=== PATIENT | male | born 1945 | race Caucasian/White ===

== ENCOUNTER 2020-12-16 19:01 | Observation (INO) | payer MEDICARE ==
[~2020-12-16] VITALS: Ht 172.7 cm; Wt 116.8 kg
[2020-12-16 19:18] LABS: BASOPHILS ABSOLUTE AUTO 0.04 K/mm3 (0.00-0.23); BASOPHILS PERCENT AUTO 0 % (0-2); EOSINOPHILS ABSOLUTE AUTO 0.24 K/mm3 (0.00-0.68); EOSINOPHILS PERCENT AUTO 2 % (0-6); Hematocrit 43.1 % (37.0-53.0); Hemoglobin 14.2 g/dL (13.5-17.5); IMMATURE GRAN ABSOLUTE AUTO 0.06 K/mm3 (0.00-0.10); IMMATURE GRAN PERCENT AUTO 1 % (0-1); LYMPHOCYTES ABSOLUTE AUTO 2.79 K/mm3 (0.84-5.20); LYMPHOCYTES PERCENT AUTO 25 % (21-46); MONOCYTES ABSOLUTE AUTO 0.57 K/mm3 (0.16-1.47); MONOCYTES PERCENT AUTO 5 % (4-13); Mean Corpuscular HGB 28.9 pg (26.0-34.0); Mean Corpuscular HGB Conc 32.9 g/dL (31.5-36.5); Mean Corpuscular Volume 88 fL (80-100); NEUTROPHILS ABSOLUTE AUTO 7.43 K/mm3 (1.96-9.15); NEUTROPHILS PERCENT AUTO 67 % (41-73); Platelet Count 219 K/mm3 (150-400); RDW Coefficient Variation 13.1 % (11.7-14.2); RDW Standard Deviation 42.3 fL (35.1-46.3); Red Blood Cell Count 4.91 M/mm3 (4.30-5.90); White Blood Cell Count 11.13 K/mm3 (4.00-11.30)
[2020-12-16] MEDS ORDERED: HUMALOG KW100 UNIT/1 SC (19:34)
[2020-12-16 19:35] LABS: Alanine Aminotransfer (ALT/SGP 31 U/L (12-78); Albumin, Blood 3.5 g/dL (3.4-5.0); Albumin/Globulin Ratio 0.9 (0.8-1.8); Alk Phos 105 U/L (50-136); Anion Gap 9 mmol/L (6-16); Aspartate Aminotrans (AST/SGOT 27 U/L (12-37); Bilirubin, Total 0.2 mg/dL (0.1-1.0); Blood Urea Nitrogen 23 mg/dL (8-24); Bun/Creatinine Ratio 24.6 (12.0-20.0); CO2, Blood 27 mmol/L (21-32); Calcium, Blood 8.8 mg/dL (8.5-10.1); Chloride, Blood 104 mmol/L (98-108); Creatinine, Blood 0.93 mg/dL (0.60-1.20); Globulin, Blood 4.1 g/dL (2.2-4.0); Glomerular Filtration Rate >60 (60-); Glucose, Blood 205 mg/dL (70-99); Potassium, Blood 3.3 mmol/L (3.5-5.5); Sodium, Blood 140 mmol/L (136-145); Total Protein, Blood 7.6 g/dL (6.4-8.2)
[2020-12-16] MEDS ORDERED: BASAGLAR K100 UNIT/1 SC (19:35)
[2020-12-16] MEDS ORDERED: METF500 PO (19:36)
[2020-12-16] MEDS ORDERED: VENL150ER PO (19:37)
[2020-12-16] MEDS ORDERED: VENL75ER PO (19:38)
[2020-12-16] MEDS ORDERED: LISI20 PO (19:39)
[2020-12-16 22:10] LABS: Calcium, Ionized (POC) 1.11 mmol/L (1.10-1.46); Chloride (POC) 100 mmol/L (98-108); Creatinine (POC) 1.1 mg/dL (0.8-1.3); Glucose (ISTAT POC) 132 mg/dL (70-99); Hemoglobin (POC) 13.6 g/dL (13.5-17.5); Potassium (POC) 3.5 mmol/L (3.5-5.5); Sodium (POC) 141 mmol/L (135-148); Total CO2 (POC) 29 mmol/L (21-32)
--- NOTE | 2020-12-17 03:18 | NUR ---
HYPERTENSIVE PT REMAINS HYPERTENSIVE DESPITE PO HYDRALYZINE. BP IMPROVED BUT SBP STILL HIGH IN THE 170'S. DR. STERN CALLED AND NOTIFIED OF PT BP AND THAT HE HAS ALREADY RECEIVED PO HYDRALYZINE. RECEIVED ORDER FOR IV HYDRALYZINE 10MG FOR SBP GREATER THAN 160 Q 6HR.
[2020-12-17 05:09] LABS: BASOPHILS ABSOLUTE AUTO 0.05 K/mm3 (0.00-0.23); BASOPHILS PERCENT AUTO 1 % (0-2); EOSINOPHILS ABSOLUTE AUTO 0.22 K/mm3 (0.00-0.68); EOSINOPHILS PERCENT AUTO 3 % (0-6); Hematocrit 41.3 % (37.0-53.0); Hemoglobin 13.3 g/dL (13.5-17.5); IMMATURE GRAN ABSOLUTE AUTO 0.04 K/mm3 (0.00-0.10); IMMATURE GRAN PERCENT AUTO 1 % (0-1); LYMPHOCYTES ABSOLUTE AUTO 2.44 K/mm3 (0.84-5.20); LYMPHOCYTES PERCENT AUTO 28 % (21-46); MONOCYTES ABSOLUTE AUTO 0.71 K/mm3 (0.16-1.47); MONOCYTES PERCENT AUTO 8 % (4-13); Mean Corpuscular HGB 28.5 pg (26.0-34.0); Mean Corpuscular HGB Conc 32.2 g/dL (31.5-36.5); Mean Corpuscular Volume 88 fL (80-100); Mean Platelet Volume 10.7 fL (9.1-12.4); NEUTROPHILS ABSOLUTE AUTO 5.27 K/mm3 (1.96-9.15); NEUTROPHILS PERCENT AUTO 60 % (41-73); Platelet Count 212 K/mm3 (150-400); RDW Standard Deviation 42.1 fL (35.1-46.3); Red Blood Cell Count 4.67 M/mm3 (4.30-5.90); White Blood Cell Count 8.73 K/mm3 (4.00-11.30)
[2020-12-17 05:10] LABS: Anion Gap 8 mmol/L (6-16); Blood Urea Nitrogen 20 mg/dL (8-24); Bun/Creatinine Ratio 24.8 (12.0-20.0); CO2, Blood 27 mmol/L (21-32); Calcium, Blood 8.7 mg/dL (8.5-10.1); Chloride, Blood 107 mmol/L (98-108); Creatinine, Blood 0.81 mg/dL (0.60-1.20); Glomerular Filtration Rate >60 (60-); Glucose, Blood 171 mg/dL (70-99); Magnesium, Blood 1.8 mg/dL (1.6-2.4); Phosphorus, Blood 2.9 mg/dL (2.5-4.9); Potassium, Blood 3.7 mmol/L (3.5-5.5); Sodium, Blood 142 mmol/L (136-145)
--- NOTE | 2020-12-17 06:17 | NUR ---
SHIFT SUMMARY PT ER ADMIT THIS SHIFT FOR ACCIDENTAL OD OF HUMALOG. 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 PT BG HAS BEEN CORRECTED IN THE ER WITH SEVERAL SNACKS, AND DINNER BEFORE ARRIVING TO ER. BG IS BEING KEPT STABLE WITH DEXTROSE. MONITORING BG Q4HR AT THIS TIME. BG RANGE BETWEEN 150'S-180'S. PT A/OX4, ALL SYSTEMS ESSENTIALLY NEGATIVE. HYPERTENSIVE, PT HAS BEEN MEDICATED WITH HYDRALYZINE ORDERED. POTASSIUM BEING REPLACED DUE TO INSULIN SHIFTS. NO ACUTE CHANGES TO REPORT SINCE ADMISSION. BED IN LOWEST POSITION, CALL LIGHT WITHIN REACH.
[2020-12-17] MEDS ORDERED: HYDR10 PO (14:09)
--- NOTE | 2020-12-17 14:31 | NUR ---
PATIENT DISCHARGE: PATIENT DISCHARGED TO HOME THIS SHIFT. MEDICATION RECONCILIATION COMPLETED; NO NEW MEDS TO REPORT. DISCHARGE EDUCATION COMPLETED WITH PATIENT AND FAMILY. PATIENT TRANSPORTED TO EXIT BY [facility] WITH WHEELCHAIR AT 1430. PATIENT DEPARTED [facility] VIA PRIVATE AUTO.
== END 2020-12-17 14:30 | disposition home or self-care (01) ==
LOC: ER 19:01 → MEDS 19:02 → ER 23:18 → MEDS 23:18 → ENPENDDIS 12-17 10:25 → MEDS 12-17 14:30
PROVIDERS: Emergency Medicine; ADMIT Family Medicine
DX: T38.3X1A Poisoning by insulin and oral hypoglycemic [antidiabetic] drugs, accidental (unintentional), initial encounter (principal); E87.6 Hypokalemia; I16.0 Hypertensive urgency; I10 Essential (primary) hypertension; E11.9 Type 2 diabetes mellitus without complications; E66.01 Morbid (severe) obesity due to excess calories; Z79.4 Long term (current) use of insulin
CPT/HCPCS: 36415; 80047; 80048; 80053; 82947; 83735; 84100; 85014; 85025; 93005; 93010; 96372; 96374; 96375; 99285-25; A9270; G0378; J0360; J1650

== ENCOUNTER 2021-05-16 20:18 | Emergency (ER) | payer MEDICARE ==
[~2021-05-16] VITALS: Ht 177.8 cm; Wt 124.7 kg
[~2021-05-16 20:18] MED LIST: BASAGLAR K100 UNIT/1 SC; HUMALOG KW100 UNIT/1 SC; HYDR10 PO; LISI20 PO; METF500 PO; VENL150ER PO; VENL75ER PO
[2021-05-16 20:48] LABS: BASOPHILS ABSOLUTE AUTO 0.04 K/mm3 (0.00-0.23); BASOPHILS PERCENT AUTO 0 % (0-2); EOSINOPHILS PERCENT AUTO 0 % (0-6); Hematocrit 40.5 % (37.0-53.0); Hemoglobin 13.5 g/dL (13.5-17.5); IMMATURE GRAN ABSOLUTE AUTO 0.07 K/mm3 (0.00-0.10); IMMATURE GRAN PERCENT AUTO 1 % (0-1); LYMPHOCYTES ABSOLUTE AUTO 1.58 K/mm3 (0.84-5.20); LYMPHOCYTES PERCENT AUTO 11 % (21-46); MONOCYTES ABSOLUTE AUTO 1.21 K/mm3 (0.16-1.47); MONOCYTES PERCENT AUTO 8 % (4-13); Mean Corpuscular HGB 29.3 pg (26.0-34.0); Mean Corpuscular HGB Conc 33.3 g/dL (31.5-36.5); Mean Corpuscular Volume 88 fL (80-100); NEUTROPHILS ABSOLUTE AUTO 11.57 K/mm3 (1.96-9.15); NEUTROPHILS PERCENT AUTO 80 % (41-73); Platelet Count 211 K/mm3 (150-400); RDW Coefficient Variation 13.3 % (11.7-14.2); RDW Standard Deviation 42.8 fL (35.1-46.3); Red Blood Cell Count 4.61 M/mm3 (4.30-5.90); White Blood Cell Count 14.47 K/mm3 (4.00-11.30)
[2021-05-16 21:11] LABS: Alanine Aminotransfer (ALT/SGP 21 U/L (12-78); Albumin, Blood 3.1 g/dL (3.4-5.0); Albumin/Globulin Ratio 0.7 (0.8-1.8); Alk Phos 87 U/L (50-136); Anion Gap 7 mmol/L (6-16); Aspartate Aminotrans (AST/SGOT 24 U/L (12-37); Bilirubin, Total 0.5 mg/dL (0.1-1.0); Blood Urea Nitrogen 17 mg/dL (8-24); Bun/Creatinine Ratio 19.1 (12.0-20.0); CO2, Blood 27 mmol/L (21-32); Calcium, Blood 8.8 mg/dL (8.5-10.1); Chloride, Blood 99 mmol/L (98-108); Creatinine, Blood 0.89 mg/dL (0.60-1.20); Ethanol (Alcohol), Blood, Med <3 mg/dL; Globulin, Blood 4.7 g/dL (2.2-4.0); Glomerular Filtration Rate >60 (60-); Glucose, Blood 121 mg/dL (70-99); Potassium, Blood 3.1 mmol/L (3.5-5.5); Sodium, Blood 133 mmol/L (136-145); Total Protein, Blood 7.8 g/dL (6.4-8.2)
[2021-05-16 21:42] LABS: Source, Urine Voided
[2021-05-16 21:49] LABS: Bilirubin, Urine Neg (Neg); Blood, Urine 2+ (Neg); Glucose Qualitative, Urine Neg (Neg); Ketones, Urine 2+ (Neg); Leukocyte Esterase, Urine Neg (Neg); Nitrite, Urine Neg (Neg); Protein, Urine 3+ (Neg); Specific Gravity, Urine 1.015 (1.003-1.022); Urobilinogen, Urine 1+ (Normal); pH, Urine 6.5 (5.0-8.0)
[2021-05-16 21:56] LABS: Appearance, Urine Clear (Clear); Color, Urine Yellow (P-Yellow)
[2021-05-16 21:57] LABS: Bacteria Not Seen /hpf; Red Blood Cells, Urine 0-2 /hpf (0-2); Squamous Epithelial Cells Not Seen /hpf (Few); White Blood Cells, Urine Not Seen /hpf (0-5)
[2021-05-16 21:59] LABS: U Amphetamine Screen Not Detected; U Barbituate Screen Not Detected; U Benzodiazapine Screen Not Detected; U Buprenorphine Screen Not Detected; U Cannabinoids Screen Not Detected; U Cocaine Screen Not Detected; U Methadone Screen Not Detected; U Methamphetamine Screen Not Detected; U Opiates Screen Not Detected; U Oxycodone Screen Not Detected; U Phencyclidine Screen Not Detected; U Propoxyphene Screen Not Detected
== END 2021-05-17 02:52 | disposition home or self-care (01) ==
LOC: ER 20:18
PROVIDERS: Emergency Medicine
DX: R50.9 Fever, unspecified (principal); E11.9 Type 2 diabetes mellitus without complications; R53.1 Weakness; Z79.4 Long term (current) use of insulin; Z79.899 Other long term (current) drug therapy
CPT/HCPCS: 70450; 80053; 81001; 82947; 85025; 93005; 93010; 96365; 99285-25; G0480; J0696

== ENCOUNTER 2022-04-03 07:16 | Day surgery (SDC) | payer MEDICARE ==
[~2022-04-03] VITALS: Ht 172.7 cm; Wt 109.1 kg
[~2022-04-03 07:16] MED LIST changes: +AMLODIPINE BESY10 MG PO; +CYMBALTA30 M2 PO; +FUROSEMIDE40 MG PO; +GABAPENTIN600 MG PO; +HYDCHL25 PO; +K-Dur20 MEQ PO; +METOPROLOL TART25 MG PO; +Simvastatin20 MG PO; +ZOLPIDEM TARTRA10 MG PO
[2022-04-03] MEDS ORDERED: INSULANI (08:08)
--- NOTE | 2022-04-03 09:23 | NUR ---
04/03/22 0923 Stella Saunders LATE ENTRY: PT AWAKE, ALERT, PT SMILING AND LAUGHING PRIOR TO D/C
== END 2022-04-03 09:22 | disposition home or self-care (01) ==
LOC: ORSCSDS 07:16
PROVIDERS: Orthopaedic Surgery
PROC: 01N50ZZ Release Median Nerve, Open Approach (ICD-10-PCS; principal; 2022-04-03 08:30)
DX: G56.03 Carpal tunnel syndrome, bilateral upper limbs (principal); E11.9 Type 2 diabetes mellitus without complications; I10 Essential (primary) hypertension; F32.A Depression, unspecified; E78.5 Hyperlipidemia, unspecified; E03.9 Hypothyroidism, unspecified; E66.9 Obesity, unspecified; Z68.36 Body mass index [BMI] 36.0-36.9, adult; Z79.4 Long term (current) use of insulin; Z79.899 Other long term (current) drug therapy
CPT/HCPCS: 82947; J0690; J2250; J2704; J3010; J7120

== ENCOUNTER 2022-05-08 06:51 | Day surgery (SDC) | payer MEDICARE ==
[~2022-05-08] VITALS: Ht 172.7 cm; Wt 115.6 kg
[~2022-05-08 06:51] MED LIST changes: +INSULANI
--- NOTE | 2022-05-08 07:34 | NUR ---
05/08/22 0734 Stella Saunders CALL LIGHT WITHIN REACH
--- NOTE | 2022-05-08 08:14 | NUR ---
05/08/22 0814 ARUELIANO SMITH 0.3MG OF EPI (1MG/1ML) ADDED TO 30MLS OF LIDOCAINE 1% TO CREATE A LOCAL SOLUTION OF LIDOCAINE 1% WITH EPI 1:100,000. 10MLS OF LIDOCAINE 1% WITH EPI INJECTED INTO LHAND BY DR. PAT AT BEGINNING OF CASE.
--- NOTE | 2022-05-08 08:49 | NUR ---
05/08/22 0849 Bárbara Heck PT READY FOR D/C, AWAITING SISTER JAY JAY FROM [place].
== END 2022-05-08 09:16 | disposition home or self-care (01) ==
LOC: ORSCSDS 06:51
PROVIDERS: Orthopaedic Surgery
PROC: 01N50ZZ Release Median Nerve, Open Approach (ICD-10-PCS; principal; 2022-05-08 08:00)
DX: G56.02 Carpal tunnel syndrome, left upper limb (principal); E11.9 Type 2 diabetes mellitus without complications; I10 Essential (primary) hypertension; F32.A Depression, unspecified; E78.5 Hyperlipidemia, unspecified; E03.9 Hypothyroidism, unspecified; Z79.4 Long term (current) use of insulin; Z79.899 Other long term (current) drug therapy
CPT/HCPCS: 82947; J0171; J0690; J1100; J2250; J2405; J2704; J3010; J7120

== ENCOUNTER 2023-10-16 20:22 | Observation (INO) | payer MEDICARE ==
[~2023-10-16] VITALS: Ht 172.7 cm; Wt 117.9 kg
[~2023-10-16 20:22] MED LIST changes: -INSULANI; +INSULANI SC
[2023-10-16 20:51] LABS: BASOPHILS ABSOLUTE AUTO 0.04 K/mm3 (0.00-0.23); BASOPHILS PERCENT AUTO 0 % (0-2); EOSINOPHILS ABSOLUTE AUTO 0.01 K/mm3 (0.00-0.68); EOSINOPHILS PERCENT AUTO 0 % (0-6); Hematocrit 39.6 % (37.0-53.0); Hemoglobin 12.7 g/dL (13.5-17.5); IMMATURE GRAN ABSOLUTE AUTO 0.05 K/mm3 (0.00-0.10); IMMATURE GRAN PERCENT AUTO 1 % (0-1); LYMPHOCYTES PERCENT AUTO 9 % (21-46); MONOCYTES PERCENT AUTO 6 % (4-13); Mean Corpuscular HGB 28.6 pg (26.0-34.0); Mean Corpuscular HGB Conc 32.1 g/dL (31.5-36.5); Mean Corpuscular Volume 89 fL (80-100); Mean Platelet Volume 9.6 fL (9.1-12.4); NEUTROPHILS ABSOLUTE AUTO 9.19 K/mm3 (1.96-9.15); NEUTROPHILS PERCENT AUTO 84 % (41-73); Platelet Count 153 K/mm3 (150-400); RDW Coefficient Variation 13.8 % (11.7-14.2); RDW Standard Deviation 45.2 fL (35.1-46.3); Red Blood Cell Count 4.44 M/mm3 (4.30-5.90); White Blood Cell Count 10.99 K/mm3 (4.00-11.30)
[2023-10-16 21:16] LABS: Albumin/Globulin Ratio 0.8 (0.8-1.8); Bilirubin, Total 0.2 mg/dL (0.1-1.0); Calcium, Blood 8.7 mg/dL (8.5-10.1); Creatinine, Blood 1.57 mg/dL (0.60-1.20); Globulin, Blood 3.7 g/dL (2.2-4.0); Potassium, Blood 4.7 mmol/L (3.5-5.5); Total Protein, Blood 6.7 g/dL (6.4-8.2)
[2023-10-17 01:57] LABS: Source, Urine Clean Catch
[2023-10-17 01:58] LABS: Bilirubin, Urine Neg (Neg); Blood, Urine 1+ (Neg); Glucose Qualitative, Urine Neg (Neg); Ketones, Urine Neg (Neg); Leukocyte Esterase, Urine Neg (Neg); Nitrite, Urine Neg (Neg); Protein, Urine 3+ (Neg); Specific Gravity, Urine 1.015 (1.003-1.022); Urobilinogen, Urine NORM (Normal)
[2023-10-17 02:08] LABS: Appearance, Urine Clear (Clear); Color, Urine Yellow (P-Yellow)
[2023-10-17 02:09] LABS: Bacteria Rare /hpf; Squamous Epithelial Cells Rare /hpf (Few); Transitional Epithelial Cells Few /hpf (0-Rare); White Blood Cells, Urine 0-2 /hpf (0-5)
[2023-10-17] MEDS ORDERED: SPIR25 PO (03:56)
[2023-10-17] MEDS ORDERED: DOXA4 PO (03:56)
[2023-10-17] MEDS ORDERED: ABILIFY MYCITE10 M2 PO (03:58)
--- NOTE | 2023-10-17 04:44 | NUR ---
NURSE NOTE PATIENT ARRIVED FROM ED. PATIENT TRANSFERRED WITH ONE PERSON ASSIST FROM [facility] TO BED. COMPLETING ADMIT NOW.
[2023-10-17 04:45] VITALS: BP 144/59
[2023-10-17 05:18] LABS: BASOPHILS ABSOLUTE AUTO 0.04 K/mm3 (0.00-0.23); BASOPHILS PERCENT AUTO 0 % (0-2); EOSINOPHILS ABSOLUTE AUTO 0.04 K/mm3 (0.00-0.68); EOSINOPHILS PERCENT AUTO 0 % (0-6); Hemoglobin 12.3 g/dL (13.5-17.5); IMMATURE GRAN ABSOLUTE AUTO 0.05 K/mm3 (0.00-0.10); IMMATURE GRAN PERCENT AUTO 1 % (0-1); LYMPHOCYTES ABSOLUTE AUTO 1.61 K/mm3 (0.84-5.20); LYMPHOCYTES PERCENT AUTO 16 % (21-46); MONOCYTES ABSOLUTE AUTO 0.61 K/mm3 (0.16-1.47); MONOCYTES PERCENT AUTO 6 % (4-13); Mean Corpuscular HGB 28.1 pg (26.0-34.0); Mean Corpuscular HGB Conc 31.5 g/dL (31.5-36.5); Mean Corpuscular Volume 89 fL (80-100); Mean Platelet Volume 9.8 fL (9.1-12.4); NEUTROPHILS PERCENT AUTO 76 % (41-73); Platelet Count 157 K/mm3 (150-400); RDW Coefficient Variation 13.9 % (11.7-14.2); RDW Standard Deviation 45.6 fL (35.1-46.3); Red Blood Cell Count 4.37 M/mm3 (4.30-5.90); White Blood Cell Count 9.85 K/mm3 (4.00-11.30)
[2023-10-17 06:02] LABS: Albumin, Blood 3.1 g/dL (3.4-5.0); Albumin/Globulin Ratio 0.8 (0.8-1.8); Bilirubin, Total 0.4 mg/dL (0.1-1.0); Bun/Creatinine Ratio 24.5 (12.0-20.0); Calcium, Blood 8.9 mg/dL (8.5-10.1); Creatinine, Blood 1.59 mg/dL (0.60-1.20); Globulin, Blood 3.8 g/dL (2.2-4.0); Potassium, Blood 4.4 mmol/L (3.5-5.5); Total Protein, Blood 6.9 g/dL (6.4-8.2)
[2023-10-17 07:09] VITALS: BP 171/59
[2023-10-17 11:41] VITALS: BP 143/67
[2023-10-17 15:33] VITALS: BP 173/72
--- NOTE | 2023-10-17 16:12 | NUR ---
SHIFT SUMMARY: NO ACUTE EVENTS. DENIED PAIN. WORKED WITH PHYSICAL THERAPY TODAY; WANTS RX FOR WALKER FOR HOME AT D/C. BUE STILL VERY WEAK, SBA WITH GB AND FWW WHEN AMBULATING. USING URINAL INDEPENDENTLY. SKIN INTACT. EDUCATED ABOUT FALL PREVENTION WHILE IN THE HOSPITAL, VERBALILZED UNDERSTANDING. GAVE TELEPHONE UPDATE TO HIS SISTER JAY JAY, WHO STATED SHE IS MOVING TO [place] THE END OF NEXT WEEK TO LOOK AFTER PT BETTER.
[2023-10-17 19:16] VITALS: BP 163/71
[2023-10-18 04:27] VITALS: BP 166/98
[2023-10-18 05:08] VITALS: BP 187/68
[2023-10-18 05:58] VITALS: BP 182/93
--- NOTE | 2023-10-18 06:33 | NUR ---
SHIFT SUMMARY NOC PT A/O X 4. PLEASANT AND COOPERATIVE WITH CARE. PT HAD C/O OF INSOMNIA AND ORDER OBTAINED FOR HOME RX BEDTIME DOSE OF AMBIEN. PT STILL HAS SIGNIFICANT BUE WEAKNESS AND NEEDS ASSISTANCE TO SIT UP AT EDGE OF BED. PT WAS INCONTINENT OF URINE X 1, AND REPORTED IT WAS DUE TO HEAVY SLEEP FROM TAKING AMBIEN. PT HS CBG 143 AND PT DID NOT WANT TO TAKE A SNACK WITH EVENING SCHEDULED DOSE OF GLARGINE, SO DOSE WAS NOT GIVEN DUE TO CLINICAL JUDGEMENT. PT HAD ELEVATED BP THIS AM AND HYDRALAZINE AND LABETELOL GIVEN, PT IS ON TELE NOW RUNNING SINUS RHYTHM IN HIGH 60'S.PT IS CURRENTLY RESTING WITH BED ALARM ON, BED IN LOWEST POSITION, AND CALL LIGHT WITHIN REACH.
[2023-10-18 06:42] VITALS: BP 180/83
[2023-10-18 07:27] VITALS: BP 152/64
[2023-10-18] MEDS ORDERED: HUMALOG KW100 UNIT/1 SC (13:03)
--- NOTE | 2023-10-18 15:13 | NUR ---
PATIENT DISCHARGED TO HOME VIA [facility]. IV SALINE LOCK AND TELEMETRY REMOVED WITHOUT INCIDENT. THIS AUTHOR SPENT ~30 MINUTES REVIEWING D/C INSTRUCTIONS AND NEW MEDICATIONS WITH PATIENT, GOING OVER SLIDING SCALE, FREQUENCY OF BG CHECKS AT HOME (HE ADMITTED THAT HE DOES NOT CHECK HIS BG AT HOME BUT HAS NEW METER AND PLENTY OF SUPPLIES), FALL PREVENTION, SAFETY, AND S/S OF HYPO- AND HYPERGLYCEMIA. TOOK MEASUREMENTS OF FWW SO HE COULD BUY HIS OWN. DISCUSSED CUTTING DOWN HIS DOSE OF AMBIEN (HE TOOK 10 MG LAST NIGHT AND, PER NOC RN, WAS CONFUSED, GOT OOB NAKED, AND DID NOT KNOW WHERE HE WAS AND IT TOOK SOME TIME TO RE-ORIENT HIM; PT WAS EMBARASSED TO HEAR THIS AND DID NOT REMEMBER ANY OF IT). VERBALIZED UNDERSTANDING OF INSTRUCTIONS, BUT THIS AUTHOR DOUBTS THAT HE TRULY UNDERSTOOD. HE WILL NEED ASSISTANCE WITH HIS MEDS GOING FORWARD. HIS SISTER JAY JAY IS MOVING HERE THIS COMING THURSDAY TO HELP TAKE CARE OF HIM.
== END 2023-10-18 14:14 | disposition home or self-care (01) ==
LOC: ER 20:22 → MEDS 20:23 → ENPENDDIS 10-18 10:55 → MEDS 10-18 14:14
PROVIDERS: Emergency Medicine; Family Medicine; Student in an Organized Health Care Education/Training Program; ADMIT Internal Medicine
DX: E11.649 Type 2 diabetes mellitus with hypoglycemia without coma (principal); R09.02 Hypoxemia; I10 Essential (primary) hypertension; G56.00 Carpal tunnel syndrome, unspecified upper limb; Z79.84 Long term (current) use of oral hypoglycemic drugs; Z72.0 Tobacco use; E78.5 Hyperlipidemia, unspecified; N40.0 Benign prostatic hyperplasia without lower urinary tract symptoms; F39 Unspecified mood [affective] disorder; Z66 Do not resuscitate
CPT/HCPCS: 36415; 51701; 51798; 71046; 80053; 81001; 82947; 83880; 85025; 93005; 93010; 94640; 94664; 94760; 96374-59; 96375; 97162; 97530; 99285-25; A9270; G0378; J0360; J1650; J1815; J7799

== ENCOUNTER 2024-05-25 16:11 | Inpatient (IN) | payer MEDICARE ==
[~2024-05-25] VITALS: Ht 172.7 cm; Wt 113.4 kg
[~2024-05-25 16:11] MED LIST changes: +ABILIFY MYCITE15 M2 PO; +DOXA4 PO; +Flagyl250 MG PO; +SPIR25 PO
[2024-05-25 16:57] LABS: BASOPHILS ABSOLUTE AUTO 0.04 K/mm3 (0.00-0.23); BASOPHILS PERCENT AUTO 1 % (0-2); EOSINOPHILS PERCENT AUTO 3 % (0-6); Hematocrit 33.9 % (37.0-53.0); Hemoglobin 10.8 g/dL (13.5-17.5); IMMATURE GRAN ABSOLUTE AUTO 0.06 K/mm3 (0.00-0.10); IMMATURE GRAN PERCENT AUTO 1 % (0-1); LYMPHOCYTES ABSOLUTE AUTO 2.11 K/mm3 (0.84-5.20); LYMPHOCYTES PERCENT AUTO 27 % (21-46); MONOCYTES ABSOLUTE AUTO 0.62 K/mm3 (0.16-1.47); MONOCYTES PERCENT AUTO 8 % (4-13); Mean Corpuscular HGB 29.5 pg (26.0-34.0); Mean Corpuscular HGB Conc 31.9 g/dL (31.5-36.5); Mean Corpuscular Volume 93 fL (80-100); Mean Platelet Volume 9.8 fL (9.1-12.4); NEUTROPHILS ABSOLUTE AUTO 4.86 K/mm3 (1.96-9.15); NEUTROPHILS PERCENT AUTO 62 % (41-73); Platelet Count 186 K/mm3 (150-400); RDW Coefficient Variation 13.8 % (11.7-14.2); Red Blood Cell Count 3.66 M/mm3 (4.30-5.90); White Blood Cell Count 7.89 K/mm3 (4.00-11.30)
[2024-05-25 17:25] LABS: Magnesium, Blood 1.8 mg/dL (1.6-2.4)
[2024-05-25 17:35] LABS: Albumin, Blood 3.4 g/dL (3.4-5.0); Albumin/Globulin Ratio 0.9 (0.8-1.8); Bilirubin, Total 0.2 mg/dL (0.1-1.0); Bun/Creatinine Ratio 22.1 (12.0-20.0); Calcium, Blood 8.9 mg/dL (8.5-10.1); Creatinine, Blood 1.99 mg/dL (0.60-1.20); Globulin, Blood 3.9 g/dL (2.2-4.0); Potassium, Blood 6.7 mmol/L (3.5-5.5); Total Protein, Blood 7.3 g/dL (6.4-8.2)
[2024-05-25] MEDS ORDERED: Albuterol 2.5 MG/3 ML VIAL INH SCH (18:10)
[2024-05-25] MEDS ORDERED: Dextrose 50% 50 ML Syringe IV ONE (18:10)
[2024-05-25] MEDS ORDERED: Calcium Chloride 10% 100 MG/ML 10ML Vial IV SCH (18:10)
[2024-05-25] MEDS ORDERED: Sodium Bicarb 8.4% 1 MEQ/ML 50 ML Vial IV ONE (18:10)
[2024-05-25] MEDS ORDERED: Insulin Regular 100 Unit/ML 1ML Dose IV ONE (18:10)
[2024-05-25] MEDS ORDERED: Sodium Polystyrene Sulfonate 15GM / 60ML BTL PO ONE (18:10)
[2024-05-25] MEDS ORDERED: CALCIUM GLUC IN NACL, ISO-OSM 50 ML IV ONE (18:20)
[2024-05-25] MEDS ORDERED: Calcium Chloride 10% 1,000 MG in NS 50 ML IV ONE (18:25)
[2024-05-25 22:22] VITALS: BP 168/69
[2024-05-25] MEDS ORDERED: CeFAZolin 1000MG in D5W 50 ML IV ONE (22:55)
[2024-05-25] MEDS ORDERED: Acetaminophen 325 MG TABLET PO PRN (22:55)
[2024-05-25] MEDS ORDERED: Dexamethasone Sod Phos 10 MG/ML 1ML VIAL IV ONE (22:55)
[2024-05-25] MEDS ORDERED: FentaNYL Citrate 50 MCG/ML 2 ML Injection IV PRN (22:55)
[2024-05-25] MEDS ORDERED: Miconazole Nitrate 2% 85 GM PWD TOP SCH (23:00)
[2024-05-25 23:17] LABS: Creatinine, Blood 1.86 mg/dL (0.60-1.20); Potassium, Blood 5.8 mmol/L (3.5-5.5)
[2024-05-25] MEDS ORDERED: CeFAZolin Sodium 1,000 MG in NS 50 ML IV ONE (23:20)
[2024-05-25] MEDS ORDERED: NS 250 ML IV PRN (23:55)
[2024-05-25] MEDS ORDERED: ROSUVASTATIN CA20 MG PO (23:59)
[2024-05-26] MEDS ORDERED: SERTRALINE HCL150 M1 PO
[2024-05-26] MEDS ORDERED: ANTIFUNGAL EXTR92 GM TOP (00:01)
[2024-05-26] MEDS ORDERED: PROBIOTIC1 EA13 PO (00:02)
[2024-05-26] MEDS ORDERED: TAMSULOSIN HCL0.4 M1 PO (00:03)
[2024-05-26] MEDS ORDERED: CELEBREX200 MG PO (00:05)
[2024-05-26] MEDS ORDERED: K-Dur20 MEQ PO (00:07)
[2024-05-26] MEDS ORDERED: GABAPENTIN600 MG PO (00:07)
[2024-05-26] MEDS ORDERED: EUTHYROX88 MC1 PO (00:08)
[2024-05-26] MEDS ORDERED: BUPROPION XL150 M1 PO (00:09)
[2024-05-26] MEDS ORDERED: SILDENAFIL CITR25 MG PO (00:10)
[2024-05-26 05:15] LABS: BASOPHILS ABSOLUTE AUTO 0.04 K/mm3 (0.00-0.23); BASOPHILS PERCENT AUTO 0 % (0-2); EOSINOPHILS ABSOLUTE AUTO 0.02 K/mm3 (0.00-0.68); EOSINOPHILS PERCENT AUTO 0 % (0-6); Hematocrit 37.2 % (37.0-53.0); Hemoglobin 11.7 g/dL (13.5-17.5); IMMATURE GRAN ABSOLUTE AUTO 0.09 K/mm3 (0.00-0.10); IMMATURE GRAN PERCENT AUTO 1 % (0-1); LYMPHOCYTES ABSOLUTE AUTO 1.16 K/mm3 (0.84-5.20); LYMPHOCYTES PERCENT AUTO 10 % (21-46); MONOCYTES ABSOLUTE AUTO 0.13 K/mm3 (0.16-1.47); MONOCYTES PERCENT AUTO 1 % (4-13); Mean Corpuscular HGB 29.1 pg (26.0-34.0); Mean Corpuscular HGB Conc 31.5 g/dL (31.5-36.5); Mean Corpuscular Volume 93 fL (80-100); NEUTROPHILS ABSOLUTE AUTO 9.99 K/mm3 (1.96-9.15); NEUTROPHILS PERCENT AUTO 88 % (41-73); Platelet Count 166 K/mm3 (150-400); RDW Coefficient Variation 13.7 % (11.7-14.2); RDW Standard Deviation 46.5 fL (35.1-46.3); Red Blood Cell Count 4.02 M/mm3 (4.30-5.90); White Blood Cell Count 11.43 K/mm3 (4.00-11.30)
[2024-05-26 06:17] LABS: Albumin, Blood 3.6 g/dL (3.4-5.0); Albumin/Globulin Ratio 0.9 (0.8-1.8); Bilirubin, Total 0.3 mg/dL (0.1-1.0); Bun/Creatinine Ratio 22.7 (12.0-20.0); Calcium, Blood 8.9 mg/dL (8.5-10.1); Creatinine, Blood 1.63 mg/dL (0.60-1.20); Total Protein, Blood 7.6 g/dL (6.4-8.2)
[2024-05-26 06:19] LABS: Potassium, Blood 6.1 mmol/L (3.5-5.5)
[2024-05-26] MEDS ORDERED: Insulin Regular 100 Unit/ML 1ML Dose IV ONE (07:00)
[2024-05-26] MEDS ORDERED: Dextrose 50% 50 ML Vial IV ONE (07:00)
[2024-05-26] MEDS ORDERED: Sodium Zirconium Cyclosilicate 10 GM Packet PO SCH (07:00)
[2024-05-26] MEDS ORDERED: Dextrose 5% 250 ML IV SCH (07:10)
[2024-05-26] MEDS ORDERED: Insulin Human Lispro 100 Units/ML 3ML Syringe SC SCH (07:30)
[2024-05-26 07:41] VITALS: BP 184/73
--- NOTE | 2024-05-26 08:01 | NUR ---
SHIFT SUMMARY PT ARRIVED TO ROOM 355 FROM THE ER VIA WHEELCHAIR AROUND 2200. VSS ON RA. PER TELEMETRY PT IS NSR @ 68. PT HAS YEASTY RED RASH IN GROIN AND INTERGLUTEAL CLEFT. PT ARRIVES TO THE ROOM WITH HIS R HAND VERY PAINFUL 10/10, PURPLISH IN COLOR, AND EXTREME EDEMA WITH TAUT SKIN. IV REMOVED. CALLED AND THIS RN ASKED FOR THEM TO COME TO PT'S ROOM AND VISUALIZE PT'S RIGHT HAND. PT ORIENTED TO ROOM AND CALL LIGHT. SBA TO BR, PT USES A CANE OR FWW AT BASELINE. CRITICAL K AT 6.1, NOTIFIED, SEE NEW ORDERS. CONSISTENT CARB DIET. BED IN LOWEST POSITION, CALL LIGHT WITHIN REACH.
[2024-05-26] MEDS ORDERED: Insulin Regular 100 UNIT/ML 10ML Vial IV ONE (08:30)
[2024-05-26] MEDS ORDERED: Enoxaparin 40 MG/0.4 ML SYR SC SCH (09:00)
[2024-05-26] MEDS ORDERED: Atorvastatin 40 MG Tab PO SCH (09:00)
[2024-05-26] MEDS ORDERED: Aspirin 325 MG Tab PO SCH (09:00)
[2024-05-26] MEDS ORDERED: Sertraline HCl 50 MG Tab PO SCH (09:00)
--- NOTE | 2024-05-26 09:00 | NUR ---
pt laying in bed awake a/ox4, pleasant and coopertive with care, follows commadns well, denies pain, states he's doing ok, lungs are dim t/o, resp even and unlabored, no cough noted, hrr, tele in place running sr per monitor, see strip, 2+ edema noted to b/l le, cap refill <3 sec, vs stable, afebrile, piv to rfa site is clear and patent, btx4, abd flat soft nontender, voids via bathroom, skin has a very swollen dark colored right hand, looks improved since picture was taken, has yeast rash to folds, maew, ambulates with a cane, selma, call light in reach.
[2024-05-26 11:06] LABS: Base Excess Venous -3.9 mmol/L; Bicarbonate Venous 21.5 mmol/L (24.0-30.0); PCO2 Venous 38.7 mmHg (38-42); pH Blood Venous 7.36 (7.34-7.37)
[2024-05-26 11:28] LABS: Bun/Creatinine Ratio 21.7 (12.0-20.0); Creatinine, Blood 1.57 mg/dL (0.60-1.20); Potassium, Blood 6.5 mmol/L (3.5-5.5)
[2024-05-26] MEDS ORDERED: CALCIUM GLUC IN NACL, ISO-OSM 50 ML IV ONE (11:45)
[2024-05-26] MEDS ORDERED: Furosemide 10 MG / ML 2ML Vial IV ONE (12:00)
[2024-05-26 12:42] LABS: Source, Urine Straight Cath
[2024-05-26] MEDS ORDERED: NS 500 ML IV ONE (13:00)
--- NOTE | 2024-05-26 13:02 | NUR ---
post void bladder scan was 277, had been 15 mins since void.
[2024-05-26 13:29] LABS: Appearance, Urine Clear (Clear); Bilirubin, Urine Neg (Neg); Blood, Urine Neg (Neg); Color, Urine Yellow (P-Yellow); Glucose Qualitative, Urine 2+ (Neg); Ketones, Urine Neg (Neg); Leukocyte Esterase, Urine 1+ (Neg); Nitrite, Urine Neg (Neg); Protein, Urine 1+ (Neg); Urobilinogen, Urine NORM (Normal)
[2024-05-26 13:36] LABS: Red Blood Cells, Urine 0-2 /hpf (0-2); Squamous Epithelial Cells Rare /hpf (Few)
[2024-05-26 13:37] LABS: Bacteria Few /hpf
[2024-05-26 15:44] VITALS: BP 175/69
[2024-05-26 17:09] LABS: Bun/Creatinine Ratio 21.4 (12.0-20.0); Calcium, Blood 9.6 mg/dL (8.5-10.1); Creatinine, Blood 1.73 mg/dL (0.60-1.20); Potassium, Blood 5.7 mmol/L (3.5-5.5)
--- NOTE | 2024-05-26 18:44 | NUR ---
pt last potassium is 5.7, swelling in hand is some better, has been keeping it on a heating pad, no further changes this shift. call light in reach.
[2024-05-26 20:05] VITALS: BP 182/77
[2024-05-26] MEDS ORDERED: Metoprolol Tartrate 25 MG Tab PO SCH (21:00)
[2024-05-26] MEDS ORDERED: Gabapentin 400 MG Cap PO SCH (21:00)
[2024-05-26] MEDS ORDERED: Gabapentin 300 MG Cap PO SCH (21:00)
[2024-05-26] MEDS ORDERED: Doxazosin Mesylate 2 MG Tab PO SCH (21:00)
[2024-05-26 22:21] LABS: Bun/Creatinine Ratio 23.2 (12.0-20.0); Calcium, Blood 9.2 mg/dL (8.5-10.1); Creatinine, Blood 1.77 mg/dL (0.60-1.20); Potassium, Blood 5.5 mmol/L (3.5-5.5)
[2024-05-26] MEDS ORDERED: Zolpidem Tartrate 5 MG Tab PO PRN (22:35)
[2024-05-27 03:21] VITALS: BP 172/72
--- NOTE | 2024-05-27 03:46 | NUR ---
SHIFT SUMMARY: A&OX4 PLEASANT COOPERATIVE CALL LIGHT APPROPRIATE. RA DIM LS BILAT. TELE SR 60S DENIES CP/PRESSURE, EDEMATOUS +2. R HAND PAIN MODERATE PT REFUSED PHARMOCOLOGICAL INTERVENTION, TEMPERATURE THERAPY REPOSITIONING AND DISTRACTIONS UTILIZED. R HAND MONITORED S/S IMPROVING. RECENT BM 05/26 PER PT. LFA PIV. CARB CONSIST DIET, MINIMAL PO HYRDRATION THIS SHIFT. ACHS NOT REQUIRING INSULIN NOC. PT REQUESTED AMBIEN SLEEP AID, ADMINISTERED BY BREAK RN.
[2024-05-27 05:08] LABS: BASOPHILS ABSOLUTE AUTO 0.03 K/mm3 (0.00-0.23); BASOPHILS PERCENT AUTO 0 % (0-2); EOSINOPHILS ABSOLUTE AUTO 0.01 K/mm3 (0.00-0.68); EOSINOPHILS PERCENT AUTO 0 % (0-6); Hematocrit 35.5 % (37.0-53.0); Hemoglobin 11.4 g/dL (13.5-17.5); IMMATURE GRAN ABSOLUTE AUTO 0.07 K/mm3 (0.00-0.10); IMMATURE GRAN PERCENT AUTO 1 % (0-1); LYMPHOCYTES ABSOLUTE AUTO 2.17 K/mm3 (0.84-5.20); LYMPHOCYTES PERCENT AUTO 19 % (21-46); MONOCYTES ABSOLUTE AUTO 0.74 K/mm3 (0.16-1.47); MONOCYTES PERCENT AUTO 6 % (4-13); Mean Corpuscular HGB 29.5 pg (26.0-34.0); Mean Corpuscular HGB Conc 32.1 g/dL (31.5-36.5); Mean Corpuscular Volume 92 fL (80-100); Mean Platelet Volume 9.9 fL (9.1-12.4); NEUTROPHILS ABSOLUTE AUTO 8.73 K/mm3 (1.96-9.15); NEUTROPHILS PERCENT AUTO 74 % (41-73); Platelet Count 196 K/mm3 (150-400); RDW Coefficient Variation 13.6 % (11.7-14.2); RDW Standard Deviation 45.3 fL (35.1-46.3); Red Blood Cell Count 3.87 M/mm3 (4.30-5.90); White Blood Cell Count 11.75 K/mm3 (4.00-11.30)
[2024-05-27 05:42] LABS: Bun/Creatinine Ratio 25.8 (12.0-20.0); Creatinine, Blood 1.59 mg/dL (0.60-1.20)
[2024-05-27] MEDS ORDERED: Levothyroxine Sodium 0.088 MG Tab PO SCH (06:00)
[2024-05-27 07:53] VITALS: BP 162/68
[2024-05-27] MEDS ORDERED: CefTRIAXone Sodium 1,000 MG in NS 100 ML IV SCH (09:00)
[2024-05-27] MEDS ORDERED: ARIPiprazole 5 MG Tab PO SCH (09:00)
[2024-05-27] MEDS ORDERED: AmLODIPine Besylate 5 MG Tab PO SCH (09:00)
[2024-05-27] MEDS ORDERED: Aspirin 81 MG Chew PO SCH (09:00)
[2024-05-27] MEDS ORDERED: Tamsulosin HCl 0.4 MG Cap PO SCH (09:00)
[2024-05-27] MEDS ORDERED: buPROPion HCL 150 MG TAB.SR.12H PO SCH (09:00)
[2024-05-27] MEDS ORDERED: Rosuvastatin Calcium 10 MG Tab PO SCH (09:00)
[2024-05-27] MEDS ORDERED: Carvedilol 6.25 MG Tab PO SCH (09:00)
[2024-05-27] MEDS ORDERED: DULoxetine HCL 60 MG Capsule DR PO SCH (09:00)
[2024-05-27 12:50] VITALS: BP 156/64
[2024-05-27 14:36] LABS: Bun/Creatinine Ratio 25.2 (12.0-20.0); Calcium, Blood 8.8 mg/dL (8.5-10.1); Creatinine, Blood 1.55 mg/dL (0.60-1.20); Potassium, Blood 4.5 mmol/L (3.5-5.5)
[2024-05-27 14:39] VITALS: BP 141/64
[2024-05-27] MEDS ORDERED: ASPI81CH PO (17:04)
[2024-05-27] MEDS ORDERED: CEFP200 PO (18:28)
--- NOTE | 2024-05-27 18:48 | NUR ---
DISCHARGE NOTE- PT WAS GIVEN VERBAL AND WRITTEN DISCHARGE INSTRUCTIONS AND ACKNOWLEDGED UNDERSTANDING OF THEM. IV AND TELE DC'D PRIOR TO DISCHARGE. PT HAD ORDER FOR RESUVASTATIN AND SIMVASTATIN ON DC MED REC. CALLED DR DUVALL FOR CLARIFICATION AND RECIEVED ORDER TO HAVE THE PT CONTINUE HIS HOME SIMVASTATIN DOSE. RESUVASTATIN DC'D. ALSO ORDERED VANTIN ABX FOR THE PT. THIS ORDER WAS FAXED TO [facility] PER THE PT REQUEST. PT AWARE OF F/UP APPOINTMENT DATE AND TIME. PT ESCORTED OUT TO HIS OWN TRUCK. NO S&S OF DISTRESS NOTED AT THE TIME OF DISCHARGE.
== END 2024-05-27 18:41 | disposition home or self-care (01) | DRG 683 ==
LOC: ER 16:11 → MEDS 16:12
PROVIDERS: Family Medicine; Internal Medicine; Physician Assistant; ADMIT Student in an Organized Health Care Education/Training Program
DX: N17.9 Acute kidney failure, unspecified (principal); E87.20 Acidosis, unspecified; E87.5 Hyperkalemia; N18.32 Chronic kidney disease, stage 3b; Z66 Do not resuscitate; I12.9 Hypertensive chronic kidney disease with stage 1 through stage 4 chronic kidney disease, or unspecified chronic kidney disease; N40.0 Benign prostatic hyperplasia without lower urinary tract symptoms; I25.10 Atherosclerotic heart disease of native coronary artery without angina pectoris; E11.22 Type 2 diabetes mellitus with diabetic chronic kidney disease; E03.9 Hypothyroidism, unspecified; F39 Unspecified mood [affective] disorder; E11.42 Type 2 diabetes mellitus with diabetic polyneuropathy; F32.A Depression, unspecified; F41.9 Anxiety disorder, unspecified; E66.01 Morbid (severe) obesity due to excess calories; E78.5 Hyperlipidemia, unspecified; Z79.899 Other long term (current) drug therapy; Z79.84 Long term (current) use of oral hypoglycemic drugs; Z79.01 Long term (current) use of anticoagulants; Z79.4 Long term (current) use of insulin; Z98.890 Other specified postprocedural states; Z68.38 Body mass index [BMI] 38.0-38.9, adult; Z87.891 Personal history of nicotine dependence
CPT/HCPCS: 36415; 71046; 80048; 80053; 81001; 82570; 82803; 82947; 83605; 83735; 84145; 84300; 84540; 85025; 87077; 87086; 87186; 93005; 93010; 93931; 94644; 94664; 96365; 96366; 96372; 96375; 96376; 99284-25; A9270; G0378; J0612; J0690; J0696; J1100; J1650; J1815; J1940; J3010; J7040; J7050; J7060

== ENCOUNTER 2024-07-20 09:49 | Emergency (ER) | payer MEDICARE ==
[~2024-07-20] VITALS: Ht 172.7 cm; Wt 124.7 kg
[~2024-07-20 09:49] MED LIST changes: +ANTIFUNGAL EXTR92 GM TOP; +ASPI81CH PO; +BUPROPION XL150 M1 PO; +CEFP200 PO; +CELEBREX200 MG PO; +EUTHYROX88 MC1 PO; +PROBIOTIC1 EA13 PO; +ROSUVASTATIN CA20 MG PO; +SERTRALINE HCL150 M1 PO; +SILDENAFIL CITR25 MG PO; +TAMSULOSIN HCL0.4 M1 PO
[2024-07-20 10:23] LABS: BASOPHILS ABSOLUTE AUTO 0.04 K/mm3 (0.00-0.23); BASOPHILS PERCENT AUTO 1 % (0-2); EOSINOPHILS PERCENT AUTO 0 % (0-6); Hematocrit 36.7 % (37.0-53.0); Hemoglobin 11.5 g/dL (13.5-17.5); IMMATURE GRAN ABSOLUTE AUTO 0.03 K/mm3 (0.00-0.10); IMMATURE GRAN PERCENT AUTO 0 % (0-1); LYMPHOCYTES PERCENT AUTO 14 % (21-46); MONOCYTES ABSOLUTE AUTO 0.87 K/mm3 (0.16-1.47); MONOCYTES PERCENT AUTO 10 % (4-13); Mean Corpuscular HGB Conc 31.3 g/dL (31.5-36.5); Mean Corpuscular Volume 92 fL (80-100); Mean Platelet Volume 10.2 fL (9.1-12.4); NEUTROPHILS ABSOLUTE AUTO 6.57 K/mm3 (1.96-9.15); NEUTROPHILS PERCENT AUTO 75 % (41-73); Platelet Count 144 K/mm3 (150-400); RDW Coefficient Variation 13.4 % (11.7-14.2); RDW Standard Deviation 46.3 fL (35.1-46.3); Red Blood Cell Count 3.97 M/mm3 (4.30-5.90); White Blood Cell Count 8.71 K/mm3 (4.00-11.30)
[2024-07-20 10:47] LABS: Albumin, Blood 3.5 g/dL (3.4-5.0); Albumin/Globulin Ratio 0.9 (0.8-1.8); Bilirubin, Total 0.4 mg/dL (0.1-1.0); Bun/Creatinine Ratio 18.5 (12.0-20.0); Calcium, Blood 8.8 mg/dL (8.5-10.1); Creatinine, Blood 1.62 mg/dL (0.60-1.20); Globulin, Blood 3.9 g/dL (2.2-4.0); Potassium, Blood 3.8 mmol/L (3.5-5.5); Total Protein, Blood 7.4 g/dL (6.4-8.2)
[2024-07-20] MEDS ORDERED: MethylPREDNISolone Sod Succ 125 MG Vial IV ONE (11:05)
[2024-07-20] MEDS ORDERED: Albuterol 2.5 MG/3 ML VIAL INH SCH (11:05)
[2024-07-20 11:18] LABS: Influenza A, PCR NEGATIVE (NEGATIVE); Influenza B, PCR NEGATIVE (NEGATIVE); Resp Syncytial Virus, PCR NEGATIVE (NEGATIVE); SARS-Cov-2 (COVID-19) PCR, MMC POSITIVE (NEGATIVE)
[2024-07-20] MEDS ORDERED: Prednisone20 MG PO (13:44)
[2024-07-20] MEDS ORDERED: BUDESONIDE-FO10.2 G2 INH (13:44)
[2024-07-20 14:14] VITALS: BP 141/71
== END 2024-07-20 14:16 | disposition home or self-care (01) ==
LOC: ER 09:49
PROVIDERS: Emergency Medicine
DX: U07.1 COVID-19 (principal); R06.2 Wheezing; E11.9 Type 2 diabetes mellitus without complications; I10 Essential (primary) hypertension; E78.5 Hyperlipidemia, unspecified; Z79.84 Long term (current) use of oral hypoglycemic drugs; Z79.82 Long term (current) use of aspirin; Z79.899 Other long term (current) drug therapy
CPT/HCPCS: 0241U; 71045; 80053; 83880; 84484; 85025; J2919

== ENCOUNTER 2024-08-04 08:58 | Emergency (ER) | payer MEDICARE ==
[~2024-08-04] VITALS: Ht 172.7 cm; Wt 113.4 kg
[~2024-08-04 08:58] MED LIST changes: +BUDESONIDE-FO10.2 G2 INH; +Prednisone20 MG PO
[2024-08-04 09:46] LABS: BASOPHILS ABSOLUTE AUTO 0.03 K/mm3 (0.00-0.23); BASOPHILS PERCENT AUTO 0 % (0-2); EOSINOPHILS ABSOLUTE AUTO 0.12 K/mm3 (0.00-0.68); EOSINOPHILS PERCENT AUTO 1 % (0-6); Hematocrit 39.8 % (37.0-53.0); Hemoglobin 12.6 g/dL (13.5-17.5); IMMATURE GRAN ABSOLUTE AUTO 0.04 K/mm3 (0.00-0.10); IMMATURE GRAN PERCENT AUTO 1 % (0-1); LYMPHOCYTES ABSOLUTE AUTO 1.63 K/mm3 (0.84-5.20); LYMPHOCYTES PERCENT AUTO 19 % (21-46); MONOCYTES PERCENT AUTO 6 % (4-13); Mean Corpuscular HGB Conc 31.7 g/dL (31.5-36.5); Mean Corpuscular Volume 92 fL (80-100); Mean Platelet Volume 10.2 fL (9.1-12.4); NEUTROPHILS ABSOLUTE AUTO 6.21 K/mm3 (1.96-9.15); NEUTROPHILS PERCENT AUTO 73 % (41-73); Platelet Count 192 K/mm3 (150-400); RDW Coefficient Variation 12.9 % (11.7-14.2); RDW Standard Deviation 43.3 fL (35.1-46.3); Red Blood Cell Count 4.34 M/mm3 (4.30-5.90); White Blood Cell Count 8.53 K/mm3 (4.00-11.30)
[2024-08-04 10:09] LABS: Albumin, Blood 3.5 g/dL (3.4-5.0); Albumin/Globulin Ratio 0.9 (0.8-1.8); Bilirubin, Total 0.4 mg/dL (0.1-1.0); Bun/Creatinine Ratio 11.5 (12.0-20.0); Calcium, Blood 9.2 mg/dL (8.5-10.1); Creatinine, Blood 1.31 mg/dL (0.60-1.20); Potassium, Blood 4.2 mmol/L (3.5-5.5); Total Protein, Blood 7.5 g/dL (6.4-8.2)
[2024-08-04] MEDS ORDERED: NS 1,000 ML IV SCH (10:20)
[2024-08-04 10:51] LABS: Influenza A, PCR NEGATIVE (NEGATIVE); Influenza B, PCR NEGATIVE (NEGATIVE); Resp Syncytial Virus, PCR NEGATIVE (NEGATIVE)
[2024-08-04 10:53] LABS: SARS-Cov-2 (COVID-19) PCR, MMC POSITIVE (NEGATIVE)
[2024-08-04 12:50] VITALS: BP 195/102
[2024-08-04] MEDS ORDERED: AMOCLA875 PO (12:51)
[2024-08-04] MEDS ORDERED: AZIT250 PO (12:51)
== END 2024-08-04 12:51 | disposition home or self-care (01) ==
LOC: ER 08:58
PROVIDERS: Student in an Organized Health Care Education/Training Program
DX: U07.1 COVID-19 (principal); R91.1 Solitary pulmonary nodule; E11.9 Type 2 diabetes mellitus without complications; I10 Essential (primary) hypertension; E78.5 Hyperlipidemia, unspecified; Z79.82 Long term (current) use of aspirin; Z79.52 Long term (current) use of systemic steroids; Z79.51 Long term (current) use of inhaled steroids; Z79.899 Other long term (current) drug therapy
CPT/HCPCS: 0241U; 71046; 71260; 80053; 83880; 84484; 85025; 85379; 93005; 93010; 99285-25; J7030; Q9967

== ENCOUNTER 2025-06-03 07:43 | Inpatient (IN) | payer OTHER ==
[~2025-06-03] VITALS: Ht 172.7 cm; Wt 106.0 kg
[~2025-06-03 07:43] MED LIST changes: +ACET500 PO; +AMOCLA875 PO; +AZIT250 PO
[2025-06-03] MEDS ORDERED: Ipratropium/Albuterol SulF 2.5-0.5MG/3 ML Amp INH PRN (08:05)
[2025-06-03] MEDS ORDERED: DOXA4 PO (08:11)
[2025-06-03] MEDS ORDERED: DULO60 PO (08:11)
[2025-06-03] MEDS ORDERED: HYDROmorphone HCl/Pf 1MG SYR IV ONE (08:20)
[2025-06-03] MEDS ORDERED: Albuterol 2.5 MG/3 ML VIAL INH SCH ×2 (08:30→10:35)
[2025-06-03] MEDS ORDERED: Ipratropium Bromide INH 0.02% 0.5 mg/2.5ML Vial INH SCH (08:30)
[2025-06-03 08:54] LABS: BASOPHILS ABSOLUTE AUTO 0.07 K/mm3 (0.00-0.23); BASOPHILS PERCENT AUTO 1 % (0-2); EOSINOPHILS ABSOLUTE AUTO 0.12 K/mm3 (0.00-0.68); EOSINOPHILS PERCENT AUTO 1 % (0-6); Hematocrit 37.8 % (37.0-53.0); Hemoglobin 12.2 g/dL (13.5-17.5); IMMATURE GRAN ABSOLUTE AUTO 0.05 K/mm3 (0.00-0.10); IMMATURE GRAN PERCENT AUTO 1 % (0-1); LYMPHOCYTES ABSOLUTE AUTO 1.96 K/mm3 (0.84-5.20); LYMPHOCYTES PERCENT AUTO 18 % (21-46); MONOCYTES ABSOLUTE AUTO 0.70 K/mm3 (0.16-1.47); MONOCYTES PERCENT AUTO 6 % (4-13); Mean Corpuscular HGB Conc 32.3 g/dL (31.5-36.5); Mean Corpuscular Volume 91 fL (80-100); NEUTROPHILS ABSOLUTE AUTO 8.10 K/mm3 (1.96-9.15); NEUTROPHILS PERCENT AUTO 74 % (41-73); NRBC ABSOLUTE 0.00 K/mm3 (0.00-0.02); NRBC Auto 0.0 /100 WBC (0.0-0.2); Platelet Count 182 K/mm3 (150-400); RDW Coefficient Variation 13.7 % (11.7-14.2); RDW Standard Deviation 46.0 fL (35.1-46.3)
[2025-06-03 09:19] LABS: Alanine Aminotransfer (ALT/SGP 21.0 U/L (12-78); Albumin, Blood 3.5 g/dL (3.4-5.0); Albumin/Globulin Ratio 0.8 (0.8-1.8); Anion Gap 7.0 mmol/L (3-11); Aspartate Aminotrans (AST/SGOT 22.0 U/L (12-37); Bilirubin, Total 0.4 mg/dL (0.1-1.0); Blood Urea Nitrogen 45.0 mg/dL (8-24); CO2, Blood 28.0 mmol/L (21-32); Calcium, Blood 8.9 mg/dL (8.5-10.1); Chloride, Blood 102.0 mmol/L (98-108); Creatinine, Blood 2.69 mg/dL (0.60-1.20); Globulin, Blood 4.6 g/dL (2.2-4.0); Glucose, Blood 122.0 mg/dL (70-99); Potassium, Blood 4.4 mmol/L (3.5-5.5); Sodium, Blood 133.0 mmol/L (136-145); Total Protein, Blood 8.1 g/dL (6.4-8.2)
[2025-06-03] MEDS ORDERED: NS 1,000 ML IV SCH (11:05)
[2025-06-03 12:20] LABS: pH Blood Venous 7.18 (7.34-7.37)
[2025-06-03] MEDS ORDERED: Ipratropium/Albuterol SulF 2.5-0.5MG/3 ML Amp INH SCH (13:50)
[2025-06-03] MEDS ORDERED: Albuterol 2.5 MG/3 ML VIAL INH PRN (13:50)
[2025-06-03] MEDS ORDERED: CefTRIAXone Sodium 1,000 MG in NS 100 ML IV SCH (13:51)
[2025-06-03] MEDS ORDERED: Heparin Sodium,Porcine 5,000 UNIT/0.5 ML SDV SC SCH (14:00)
[2025-06-03 15:25] LABS: pH Blood Venous 7.23 (7.34-7.37)
[2025-06-03 22:02] LABS: Source, Urine Clean Catch
[2025-06-03 22:07] LABS: Bilirubin, Urine Neg (Neg); Glucose Qualitative, Urine Neg (Neg); Ketones, Urine Neg (Neg); Leukocyte Esterase, Urine 1+ (Neg); Protein, Urine 2+ (Neg); Specific Gravity, Urine 1.025 (1.003-1.022); Urobilinogen, Urine NORM (Normal)
[2025-06-03 22:33] VITALS: BP 122/65
[2025-06-03 22:36] LABS: Color, Urine Yellow (P-Yellow); Red Blood Cells, Urine Not Seen /hpf (0-2); White Blood Cells, Urine 0-2 /hpf (0-5)
[2025-06-03 22:50] LABS: pH Blood Venous 7.35 (7.34-7.37)
[2025-06-04] VITALS (14 sets, daily range): BP systolic 113–177; BP diastolic 48–90
[2025-06-04 05:41] LABS: BASOPHILS ABSOLUTE AUTO 0.02 K/mm3 (0.00-0.23); BASOPHILS PERCENT AUTO 0 % (0-2); EOSINOPHILS ABSOLUTE AUTO 0.00 K/mm3 (0.00-0.68); EOSINOPHILS PERCENT AUTO 0 % (0-6); Hematocrit 31.3 % (37.0-53.0); Hemoglobin 10.3 g/dL (13.5-17.5); IMMATURE GRAN ABSOLUTE AUTO 0.08 K/mm3 (0.00-0.10); IMMATURE GRAN PERCENT AUTO 1 % (0-1); LYMPHOCYTES ABSOLUTE AUTO 1.41 K/mm3 (0.84-5.20); LYMPHOCYTES PERCENT AUTO 9 % (21-46); MONOCYTES ABSOLUTE AUTO 0.31 K/mm3 (0.16-1.47); MONOCYTES PERCENT AUTO 2 % (4-13); Mean Corpuscular HGB Conc 32.9 g/dL (31.5-36.5); Mean Corpuscular Volume 89 fL (80-100); NEUTROPHILS ABSOLUTE AUTO 13.60 K/mm3 (1.96-9.15); NEUTROPHILS PERCENT AUTO 88 % (41-73); NRBC ABSOLUTE 0.00 K/mm3 (0.00-0.02); NRBC Auto 0.0 /100 WBC (0.0-0.2); Platelet Count 166 K/mm3 (150-400); RDW Coefficient Variation 13.9 % (11.7-14.2); RDW Standard Deviation 45.5 fL (35.1-46.3)
[2025-06-04 06:03] LABS: Alanine Aminotransfer (ALT/SGP 17.0 U/L (12-78); Albumin, Blood 2.7 g/dL (3.4-5.0); Albumin/Globulin Ratio 0.7 (0.8-1.8); Anion Gap 10.0 mmol/L (3-11); Aspartate Aminotrans (AST/SGOT 21.0 U/L (12-37); Bilirubin, Total 0.6 mg/dL (0.1-1.0); Blood Urea Nitrogen 51.0 mg/dL (8-24); CO2, Blood 25.0 mmol/L (21-32); Calcium, Blood 8.2 mg/dL (8.5-10.1); Chloride, Blood 104.0 mmol/L (98-108); Creatinine, Blood 2.56 mg/dL (0.60-1.20); Globulin, Blood 4.1 g/dL (2.2-4.0); Glucose, Blood 155.0 mg/dL (70-99); Potassium, Blood 4.4 mmol/L (3.5-5.5); Sodium, Blood 135.0 mmol/L (136-145); Total Protein, Blood 6.8 g/dL (6.4-8.2)
--- NOTE | 2025-06-04 06:39 | NUR ---
PT MONITORED DURING THE SHIFT,NO ACUTE EVENTS NOTED.PT TOLERATED THE BIPAP THROUGHOUT THE NIGHT.PT DENIES PAIN,DENIES SOB,DENIES NEEDS AT THIS TIME.CALL LIGHT AND PT'S ITEMS WITHIN REACH.BED ALARM IN USE FOR PT'S SAFETY AND FALL PREVENTION.MONITORING ONGOING PER CAREPLAN.
[2025-06-04] MEDS ORDERED: DULoxetine HCL 30 MG Cap DR PO SCH (09:00)
[2025-06-04] MEDS ORDERED: NS 1,000 ML IV SCH (11:00)
[2025-06-04] MEDS ORDERED: Miconazole Nitrate 2% 85 GM PWD TOP SCH (11:30)
[2025-06-04] MEDS ORDERED: Insulin Human Lispro 100 Units/ML 3ML Syringe SC SCH (11:30)
[2025-06-04] MEDS ORDERED: Piperacillin/Tazobactam Sod 4.5 GM in NS 100 ML IV SCH (17:15)
--- NOTE | 2025-06-04 18:47 | NUR ---
SHIFT SUMMARY ADMITTED LAST NIGHT FOR ACUTE HYPOXIA, HE WAS ON BIPAP THIS AM BUT HAS BEEN ON NC SINCE BREAKFAST, HE STARTED AT 4L ON THE NC BUT HAS BEEN WEENED DOWN TO 3L AND MAINTAINING SATS > 95%. HE HAS BEEN PLEASANT AND COOPERATIVE WITH STAFF, MEDS PER EMAR, GUAJARDO HAS HAD OUTPUT TO GRAVITY, FLUIDS PER EMAR, TOLERATING DIET, ABLE TO MAKE NEEDS KNOWN. NO ACUTE EVENTS, CALL LIGHT IN REACH.
[2025-06-05] VITALS (11 sets, daily range): BP systolic 121–201; BP diastolic 46–81
[2025-06-05] MEDS ORDERED: HydrALAZINE HCl 20 MG / ML 1ML Vial IV PRN (01:00)
[2025-06-05] MEDS ORDERED: HydrALAZINE HCl 20 MG / ML 1ML Vial IV ONE (01:00)
[2025-06-05 03:59] LABS: BASOPHILS ABSOLUTE AUTO 0.03 K/mm3 (0.00-0.23); BASOPHILS PERCENT AUTO 0 % (0-2); EOSINOPHILS ABSOLUTE AUTO 0.00 K/mm3 (0.00-0.68); EOSINOPHILS PERCENT AUTO 0 % (0-6); Hematocrit 35.3 % (37.0-53.0); Hemoglobin 11.5 g/dL (13.5-17.5); IMMATURE GRAN ABSOLUTE AUTO 0.12 K/mm3 (0.00-0.10); IMMATURE GRAN PERCENT AUTO 1 % (0-1); LYMPHOCYTES ABSOLUTE AUTO 1.87 K/mm3 (0.84-5.20); LYMPHOCYTES PERCENT AUTO 11 % (21-46); MONOCYTES ABSOLUTE AUTO 0.36 K/mm3 (0.16-1.47); MONOCYTES PERCENT AUTO 2 % (4-13); Mean Corpuscular HGB Conc 32.6 g/dL (31.5-36.5); Mean Corpuscular Volume 90 fL (80-100); NEUTROPHILS ABSOLUTE AUTO 14.10 K/mm3 (1.96-9.15); NEUTROPHILS PERCENT AUTO 86 % (41-73); NRBC ABSOLUTE 0.00 K/mm3 (0.00-0.02); NRBC Auto 0.0 /100 WBC (0.0-0.2); Platelet Count 177 K/mm3 (150-400); RDW Coefficient Variation 13.8 % (11.7-14.2); RDW Standard Deviation 45.1 fL (35.1-46.3)
[2025-06-05 04:22] LABS: Anion Gap 6.0 mmol/L (3-11); Blood Urea Nitrogen 44.0 mg/dL (8-24); CO2, Blood 27.0 mmol/L (21-32); Calcium, Blood 8.5 mg/dL (8.5-10.1); Chloride, Blood 113.0 mmol/L (98-108); Creatinine, Blood 1.78 mg/dL (0.60-1.20); Glucose, Blood 120.0 mg/dL (70-99); Potassium, Blood 4.2 mmol/L (3.5-5.5); Sodium, Blood 142.0 mmol/L (136-145)
[2025-06-05] MEDS ORDERED: GuaiFENesin 100 MG/5 ML 5ML UDC PO PRN (04:25)
--- NOTE | 2025-06-05 04:50 | NUR ---
SHIFT SUMMARY PT ALERT AND ORIENTED X 4. IV ABX INFUSING. GUAJARDO IN PLACE WITH ADEQUATE URINE OUTPUT. CREATININE IMPROVED TO BASELINE. MIVF INFUSING @ 100ML/HR. WBC CONTINUES TO UPTREND. PT WITH COUGHING T/O THE NIGHT. PRN ROBITUSSIN STARTED. PT ON 4L NC WITH O2 SATS ABOVE 90%. NO C/O OF SOB. PT TOLERATED BIPAP FOR 4 HOURS BEFORE TRANSISTIONING BACK TO NC PER PATIENT REQUEST D/T COMFORT. PT IN SINUS RHYTHM WITH HR IN 70S-80S. NO C/O OF CP. PT WITH ELEVATED BP-HYDRALAZINE GIVEN X 1 WITH GOOD EFFECT. VSS OTHERWISE. PT ABLE TO MAKE NEEDS KNOWN.
[2025-06-05] MEDS ORDERED: CefTRIAXone Sodium 1,000 MG in NS 100 ML IV SCH (12:00)
--- NOTE | 2025-06-05 18:55 | NUR ---
DAY SHIFT SUMMARY KIRSTIE WAS ORIENTED X4, FORGETFUL AT TIMES. PLEASANT AND COOPEARTIVE. ABLE TO MAKE NEEDS KNOWN. VSS ON 2L VIA NC. WHEEZING/DIM AND DYSPNEA WITH EXERTION. CATHETER REMOVED AT START OF SHIFT DUE TO NO HX OF RETENTION AND DISCOMFORT. SOME HEMATURIA NOTED - PINK IN COLOR. HE REPORTS "PUSHING" TO PEE WITH CATHETER IN. EDUCATED ON CATHETER ANATOMY AND TO NOT DO THIS TO PREVENT TRAUMA TO HIS URETHRA. CATHETER REMOVED AND PT VOIDED, CLEARING THROUGHOUT THE DAY/ 2+ EDEMA NOTED TO BLE - NOTIFIED DR. CHRIS AND ECHO ORDERED. NO READ OF THIS NOTE. INCREASED WHEEZING/SOA AND NEBS AND STEROIDS UTILIZED. IVF DISCONTINUED. WILL PASS ON TO NOC RN WILL PASS ON TO DAY RN
[2025-06-05] MEDS ORDERED: Lactobacil 2-S.Thermo-Bifido 1 1 Cap PO SCH (21:00)
[2025-06-06] VITALS (8 sets, daily range): BP systolic 135–202; BP diastolic 66–104
--- NOTE | 2025-06-06 01:07 | NUR ---
NURSE NOTE CALL PLACED TO MD MOORE ABOUT PT INCREASED CONFUSTION, PT ABLE TO ANSWER ALL ORIENTATION QUESTIONS COORECTLY BUT IS SEEING THINGS THAT ARE NOT THERE. HE IS SPEAKING IN SENTENCES THAT DO NOT MAKE SINCE EITHER, PT HAS NOT SLEPT IN AROUND TWO DAYS ACCOORDING TO DAY SHIFT RN, AND HAS NOT SLEPT TONIGHT. BED ALARM ON, CALL LIGHT IN REACH AND BED IN LOWEST POSTION.
--- NOTE | 2025-06-06 03:23 | NUR ---
NURSE NOTE PT STILL HAS NOT SLEPT TONIGHT, HE HAS STARTED TEARING AT TELE LEADS (WOULD NOT LET STAFF PUT THEM BACK ON) HE THOUGHT THEY WERE SNAKES. PT RIPPED OUT L HAND IV, AND TORE OFF NC. HE ALSO WOULD NOT ALLOW STAFF TO PUT BACK ON NC O2 STAURATION DROPPED TO MID 80'S, WOB INCREASED. PT IS VERY CONFUSED AND NO LONGER ANSWERING ORIENTATION QUESTIONS WHEN PROMPTED DURING ATTEMPS TO REORIENTE PT HE WAS ABLE TO TELL ME HIS FULL NAME, THE TIME AND WHAT SEASON IT IS RIGHT NOW. ONE TIME ORDER OF ZYPREXA WAS OBTAINED AND GIVEN. RESTRAINT ORDER WAS OBTAINED SOFT CUFFS WERE PLACED ON BILATERAL UPPER EXTERMITES, PT TO STRONG FOR THESE AND LOCKED CUFFS WERE PLACED INSTEAD. TELE MONITOR PLACED BACK ON PT, NC BACK IN PLACE DELEIVERING 2L, AND CONTINUS OULSE OX REPLACED ON PT. BED IN LOWEST POSTION. CALL LIGHT IN REACH.
[2025-06-06 03:29] LABS: BASOPHILS ABSOLUTE AUTO 0.02 K/mm3 (0.00-0.23); BASOPHILS PERCENT AUTO 0 % (0-2); EOSINOPHILS ABSOLUTE AUTO 0.00 K/mm3 (0.00-0.68); EOSINOPHILS PERCENT AUTO 0 % (0-6); Hematocrit 36.3 % (37.0-53.0); Hemoglobin 12.3 g/dL (13.5-17.5); IMMATURE GRAN ABSOLUTE AUTO 0.14 K/mm3 (0.00-0.10); IMMATURE GRAN PERCENT AUTO 1 % (0-1); LYMPHOCYTES ABSOLUTE AUTO 2.33 K/mm3 (0.84-5.20); LYMPHOCYTES PERCENT AUTO 12 % (21-46); MONOCYTES ABSOLUTE AUTO 0.52 K/mm3 (0.16-1.47); MONOCYTES PERCENT AUTO 3 % (4-13); Mean Corpuscular HGB Conc 33.9 g/dL (31.5-36.5); Mean Corpuscular Volume 89 fL (80-100); NEUTROPHILS ABSOLUTE AUTO 16.18 K/mm3 (1.96-9.15); NEUTROPHILS PERCENT AUTO 84 % (41-73); NRBC ABSOLUTE 0.00 K/mm3 (0.00-0.02); NRBC Auto 0.0 /100 WBC (0.0-0.2); Platelet Count 232 K/mm3 (150-400); RDW Coefficient Variation 14.2 % (11.7-14.2); RDW Standard Deviation 46.7 fL (35.1-46.3)
[2025-06-06 03:48] LABS: Anion Gap 8.0 mmol/L (3-11); Blood Urea Nitrogen 41.0 mg/dL (8-24); CO2, Blood 26.0 mmol/L (21-32); Calcium, Blood 8.7 mg/dL (8.5-10.1); Chloride, Blood 112.0 mmol/L (98-108); Creatinine, Blood 1.41 mg/dL (0.60-1.20); Glucose, Blood 147.0 mg/dL (70-99); Potassium, Blood 4.5 mmol/L (3.5-5.5); Sodium, Blood 141.0 mmol/L (136-145)
--- NOTE | 2025-06-06 07:56 | NUR ---
Pt is somewhat confused but cooperative. States he has not slept in three days. Noc shift reported hallucinations and irritability overnight, and pt did not sleep. Repeatedly attempting OOB. Breath sounds are wheezing, coarse and very short expiratory phase auscultated. Mentioned to RT that pt probably needs a breathing tx at this time. Assisted up to recliner with gait belt and geriwalker, on 2 l/min of O2. Pt tolerated very well. Up in chair he has spo2 93% on room air. ATe a tiny bit of breakfast. STates he often has difficulty swallowing. Denies any difficulty taking pills. RR 32. No distress noted.
--- NOTE | 2025-06-06 08:30 | NUR ---
Pt coughed when taking thin liquids this morning with medication administration. He did not have any difficulty taking pills whole in yogurt, and did not have coughing with honey thick liquid. States that at home if he drinks ice water or drinks too quickly he has difficulty. States that he doesn't have difficulty with drinking milk. Meds given whole in yogurt or with honey thick on spoon. Told CONTINUOUS IMPROVEMENT ENGINEER to only give nectar thick liquids until further evaluation done.
--- NOTE | 2025-06-06 10:33 | NUR ---
Dr. Downs rounded on the patient. States will stop steroids, and order VBG and sleep aid for pt. Swallow eval will also be ordered due to pt's coughing with thin liquids this morning.
--- NOTE | 2025-06-06 12:15 | NUR ---
Pt is sleeping. CLOTH MENDER did bladder scan as he has only been voiding small amounts, 100cc or less rather frequently. Scan showed 360 cc.
[2025-06-06 13:44] LABS: pH Blood Venous 7.43 (7.34-7.37)
--- NOTE | 2025-06-06 14:04 | NUR ---
Given 10 mg apresoline for blood pressure >170 mmHg, not lowered enough by the scheduled morning medications.
--- NOTE | 2025-06-06 20:30 | NUR ---
RESIDENT CONTACTED. PATIENT COMPLAINTS OF SEVERE NEUROPATHY PAIN TO FEET/LEGS/HANDS-PATIENT REPORTS TAKING 1,200MG OF GABAPENTIN BID AT HOME-PATIENT HAS 1,200MG GABAPENTIN TID ON MED REC-DOCTOR ORDERED FOR PATIENT TO HAVE GABAPETIN-SEE ORDERS.
[2025-06-07] VITALS (8 sets, daily range): BP systolic 146–186; BP diastolic 67–92
[2025-06-07 04:30] LABS: BASOPHILS ABSOLUTE AUTO 0.03 K/mm3 (0.00-0.23); BASOPHILS PERCENT AUTO 0 % (0-2); EOSINOPHILS ABSOLUTE AUTO 0.00 K/mm3 (0.00-0.68); EOSINOPHILS PERCENT AUTO 0 % (0-6); Hematocrit 37.5 % (37.0-53.0); Hemoglobin 11.9 g/dL (13.5-17.5); IMMATURE GRAN ABSOLUTE AUTO 0.10 K/mm3 (0.00-0.10); IMMATURE GRAN PERCENT AUTO 1 % (0-1); LYMPHOCYTES ABSOLUTE AUTO 2.28 K/mm3 (0.84-5.20); LYMPHOCYTES PERCENT AUTO 16 % (21-46); MONOCYTES ABSOLUTE AUTO 0.91 K/mm3 (0.16-1.47); MONOCYTES PERCENT AUTO 6 % (4-13); Mean Corpuscular HGB Conc 31.7 g/dL (31.5-36.5); Mean Corpuscular Volume 92 fL (80-100); NEUTROPHILS ABSOLUTE AUTO 11.17 K/mm3 (1.96-9.15); NEUTROPHILS PERCENT AUTO 77 % (41-73); NRBC ABSOLUTE 0.00 K/mm3 (0.00-0.02); NRBC Auto 0.0 /100 WBC (0.0-0.2); Platelet Count 212 K/mm3 (150-400); RDW Coefficient Variation 14.6 % (11.7-14.2); RDW Standard Deviation 48.9 fL (35.1-46.3)
[2025-06-07 04:51] LABS: Anion Gap 4.0 mmol/L (3-11); Blood Urea Nitrogen 37.0 mg/dL (8-24); CO2, Blood 28.0 mmol/L (21-32); Calcium, Blood 8.7 mg/dL (8.5-10.1); Chloride, Blood 115.0 mmol/L (98-108); Creatinine, Blood 1.38 mg/dL (0.60-1.20); Glucose, Blood 120.0 mg/dL (70-99); Potassium, Blood 4.4 mmol/L (3.5-5.5); Sodium, Blood 143.0 mmol/L (136-145)
--- NOTE | 2025-06-07 04:53 | NUR ---
SHIFT SUMMARY. PATIENT IS A&OX4-ABLE TO ANSWER ALL ORIENTATION QUESTIONS APPROPRIATELY. PATIENT IS ABLE TO EXPRESS NEEDS AND MAKE THEM KNOWN. PATIENT UP TO BATHROOM. PATIENT RESTARTED GABAPENTIN-SEE PREVIOUS NOTE. PATIENT IS PLEASANT AND COOPERATIVE WITH CARE. PATIENT DESATTING INTO THE MID 80'S ON RA-4LPM VIA NASAL CANNULA STARTED AND PATIENT MAINTAINING SPO2 >90%. PATIENTS BREATHING APPEARS IMPROVED WHEN WEARING THE OXYGEN. PATIENT SEEN BY RT THIS SHIFT. PATIENT HAS BEEN COOPERATIVE WITH CARE, EASILY REDIRECTABLE AND PLEASANT-PATIENT APPROPRIATE TO HAVE BED ALARM ON AND NO SITTER R/T IMPROVED MENTATION FROM PREVIOUS NIGHT. PATIENT TAKES MEDS WHOLE WITH WATER. BED IS LOCKED IN THE LOWEST POSITION WITH CALL LIGHT IN REACH. CARE IS ONGOING.
[2025-06-07] MEDS ORDERED: Enoxaparin 40 MG/0.4 ML SYR SC SCH (09:00)
--- NOTE | 2025-06-07 18:09 | NUR ---
SHIFT SUMMARY. SHIFT HAS GONE WELL OVERALL. AOX3-4, COOPERATIVE, ABLE TO MAKE NEEDS KNOWN. HAS DENIED PAIN THROUGHOUT SHIFT. VITALS HAVE BEEN STABLE OUTSIDE OF ELEVATED BP AT TIMES. MED STATUS NO TELE. STEADY 1PA TRANSFER TO BATHROOM. PT HAS BEEN CONSISTENT AND MOTIVATED IN USING FLUTTER VALVE. REMAINS VERY WHEEZY AT TIMES. HAS REQUIRED 2-3 L O2 VIA NC TO MAINTAIN ADEQUATE SATURATION THROUGHOUT DAY. OVERNIGHT SLEEP OXIMETER STUDY ORDERED VIA DR. CHRIS. PT HAS VOIDED SEVERAL TIMES TODAY, ALWAYS YELLOW URINE. @1800 VOIDED BRIGHT RED URINE. PT DENIES ANY ASSOCIATED PAIN. DISCUSSED WITH DG COLLECTIVE BARGAINING SPECIALIST. NO NEED FOR CONCERN AT THIS TIME, OKAY TO MONITOR AND LET NOC RN KNOW ON REPORT. SHIFT OTHERWISE HAS GONE WELL. BED LOCKED IN LOWEST POSITION. [facility].
[2025-06-08] VITALS (15 sets, daily range): BP systolic 126–185; BP diastolic 53–138
--- NOTE | 2025-06-08 04:14 | NUR ---
SHIFT SUMMARY. PATIENT IS A&OX4, CALLS APPROPRIATELY AND IS ABLE TO MAKE HIS NEEDS KNOWN. PATIENT C/O INSOMNIA TONIGHT. PATIENT DOING A SLEEP STUDY BUT HAS BEEN UP OFF AND ON T/O NIGHT. AT THIS TIME PATIENT REQUIRING 2LPM D/T DESATTING INTO THE MID 80'S. PATIENT REPORTS SOB AND ENDORSES IT IS WORSE WITH EXERTION. PATIENT USING URINAL AT BEDSIDE. PER REPORT FROM DAYSHIFT RN PATIENT HAD BLOOD IN URINE X1 ON DAY SHIFT, TONIGHT PATIENT HAD A SMALL AMOUNT OF BLOOD NOTED IN HIS URINE X2-URINE HAS BEEN YELLOW REMAINDER OF THE NIGHT- PATIENT REPORTS THAT HE FELT HE MIGHT HAVE SCRATCHED HIS PENIS WITH THE URINAL WHEN USING THE URINAL IN BED-NO NOTED SCRATCH TO PENIS-PATIENT DENIES PAIN OR DISCOMFORT WITH URINATION. PATIENT IS PLEASANT AND COOPERATIVE WITH CARE. BED IS LOCKED IN THE LOWEST POSITION WITH CALL LIGHT IN REACH. CARE IS ONGOING.
[2025-06-08 07:28] LABS: BASOPHILS ABSOLUTE AUTO 0.03 K/mm3 (0.00-0.23); BASOPHILS PERCENT AUTO 0 % (0-2); EOSINOPHILS ABSOLUTE AUTO 0.02 K/mm3 (0.00-0.68); EOSINOPHILS PERCENT AUTO 0 % (0-6); Hematocrit 40.6 % (37.0-53.0); Hemoglobin 12.9 g/dL (13.5-17.5); IMMATURE GRAN ABSOLUTE AUTO 0.23 K/mm3 (0.00-0.10); IMMATURE GRAN PERCENT AUTO 2 % (0-1); LYMPHOCYTES ABSOLUTE AUTO 2.37 K/mm3 (0.84-5.20); LYMPHOCYTES PERCENT AUTO 18 % (21-46); MONOCYTES ABSOLUTE AUTO 0.89 K/mm3 (0.16-1.47); MONOCYTES PERCENT AUTO 7 % (4-13); Mean Corpuscular HGB Conc 31.8 g/dL (31.5-36.5); Mean Corpuscular Volume 93 fL (80-100); NEUTROPHILS ABSOLUTE AUTO 9.65 K/mm3 (1.96-9.15); NEUTROPHILS PERCENT AUTO 73 % (41-73); NRBC ABSOLUTE 0.00 K/mm3 (0.00-0.02); NRBC Auto 0.0 /100 WBC (0.0-0.2); Platelet Count 197 K/mm3 (150-400); RDW Coefficient Variation 14.3 % (11.7-14.2); RDW Standard Deviation 49.3 fL (35.1-46.3)
[2025-06-08 07:55] LABS: Anion Gap 7.0 mmol/L (3-11); Blood Urea Nitrogen 27.0 mg/dL (8-24); CO2, Blood 27.0 mmol/L (21-32); Calcium, Blood 9.0 mg/dL (8.5-10.1); Chloride, Blood 109.0 mmol/L (98-108); Creatinine, Blood 1.19 mg/dL (0.60-1.20); Glucose, Blood 127.0 mg/dL (70-99); Potassium, Blood 4.3 mmol/L (3.5-5.5); Sodium, Blood 139.0 mmol/L (136-145)
[2025-06-08 11:55] LABS: pH Blood Venous 7.39 (7.34-7.37)
[2025-06-08] MEDS ORDERED: Magnesium Sulf 2 GM/Water 50ML 50 ML IV STA (12:59)
[2025-06-08] MEDS ORDERED: Ipratropium/Albuterol SulF 2.5-0.5MG/3 ML Amp INH SCH (13:00)
[2025-06-08] MEDS ORDERED: NS 250 ML IV PRN (13:05)
[2025-06-08] MEDS ORDERED: Vancomycin (Pharmacy Consult) IV SCH (15:00)
[2025-06-08] MEDS ORDERED: Cefepime HCl 2,000 MG in NS 100 ML IV SCH (15:00)
[2025-06-08] MEDS ORDERED: Albuterol 2.5 MG/3 ML VIAL INH ONE (16:10)
--- NOTE | 2025-06-08 16:56 | NUR ---
DR. GUO TO BEDSIDE. REQUESTS PT TRANSFER TO ICU. PT CXR TAKEN THIS AFTERNOON LOOKS SIGNIFICANTLY WORSE THAN CXR FROM THIS MORNING. CONCERN FOR ASPIRATION, PT HAS HAD VERY MINIMAL PO INTAKE OVER COURSE OF DAY. KEEPING NPO FOR TIME BEING D/T RISK UNTIL ASPIRATION CAN BE RULED OUT. PT EDUCATED AND UNDERSTANDING. REMAINS ON BIPAP, SETTINGS 14/6 W/ 70% FIO2. MAINTAINING SATS 89-93%. LUNGS DO SOUND A LITTLE BETTER ON AUSCULTATION THAN EARLIER THIS AFTERNOON. VITALS HAVE OTHERWISE BEEN STABLE WITH SBP <160 THIS AFTERNOON THUS FAR. DENIES PAIN. BRIEF DISCUSSION W/ PT REGARDING POSSIBILITY OF INTUBATION. REASSURED THAT THIS IS NOT THE CURRENT PLAN BUT INQUIRED ABOUT HIS WILLINGNESS TO UNDERGO SHOULD IT BECOME NECESSARY. PT REITERATES THAT HE WOULD BE WILLING TO BE INTUBATED IF COMPLETELY NECESSARY. TRANSFER ORDERS TO ICU INPUT, AWAITING ROOM TO BE CLEANED TO GIVE REPORT AND TRANSFER. MONITORING.
--- NOTE | 2025-06-08 19:15 | NUR ---
Summary. Pt arrived to the icu at approximately 1730. Pt A&O, on Bipap, 29/04 70%, see RT charting for current settings. Physical exam agrees with previously charted assessment. Lung sounds diminished. Per Dr. Avalos, pt to remain strict NPO until speech therapy evaluation in the am. No acute events this evening, see chart for further details.
[2025-06-09] VITALS (31 sets, daily range): BP systolic 114–176; BP diastolic 48–79
[2025-06-09 03:39] LABS: BASOPHILS ABSOLUTE AUTO 0.02 K/mm3 (0.00-0.23); BASOPHILS PERCENT AUTO 0 % (0-2); EOSINOPHILS ABSOLUTE AUTO 0.00 K/mm3 (0.00-0.68); EOSINOPHILS PERCENT AUTO 0 % (0-6); Hematocrit 35.3 % (37.0-53.0); Hemoglobin 11.3 g/dL (13.5-17.5); IMMATURE GRAN ABSOLUTE AUTO 0.17 K/mm3 (0.00-0.10); IMMATURE GRAN PERCENT AUTO 1 % (0-1); LYMPHOCYTES ABSOLUTE AUTO 1.62 K/mm3 (0.84-5.20); LYMPHOCYTES PERCENT AUTO 14 % (21-46); MONOCYTES ABSOLUTE AUTO 0.15 K/mm3 (0.16-1.47); MONOCYTES PERCENT AUTO 1 % (4-13); Mean Corpuscular HGB Conc 32.0 g/dL (31.5-36.5); Mean Corpuscular Volume 92 fL (80-100); NEUTROPHILS ABSOLUTE AUTO 9.86 K/mm3 (1.96-9.15); NEUTROPHILS PERCENT AUTO 83 % (41-73); NRBC ABSOLUTE 0.00 K/mm3 (0.00-0.02); NRBC Auto 0.0 /100 WBC (0.0-0.2); Platelet Count 180 K/mm3 (150-400); RDW Coefficient Variation 14.0 % (11.7-14.2); RDW Standard Deviation 47.5 fL (35.1-46.3)
[2025-06-09 04:04] LABS: Anion Gap 8.0 mmol/L (3-11); Blood Urea Nitrogen 31.0 mg/dL (8-24); CO2, Blood 26.0 mmol/L (21-32); Calcium, Blood 8.5 mg/dL (8.5-10.1); Chloride, Blood 111.0 mmol/L (98-108); Creatinine, Blood 1.2 mg/dL (0.60-1.20); Glucose, Blood 166.0 mg/dL (70-99); Potassium, Blood 4.4 mmol/L (3.5-5.5); Sodium, Blood 141.0 mmol/L (136-145)
--- NOTE | 2025-06-09 06:13 | NUR ---
SHIFT SUMMARY PT ALERT/ORIENTED, FOLLOWS COMMANDS APPROP, PT REMAINED ON BIPAP T/O NIGHT, SUZANNA WELL WITH 70% FIO2, O2 SAT 92-94%. DENIED DISTRESS T/O SHIFT AND IS CURRENTLY RESTING WITH EYES CLOSED. VSS AT THIS TIME. WILL UPDATE DAY RN WITH ALL OUTSTANDING ISSUES AND PROBLEMS TO DATE.
[2025-06-09] MEDS ORDERED: Cefepime HCl 2,000 MG in NS 100 ML IV SCH (14:30)
--- NOTE | 2025-06-09 18:16 | NUR ---
Summary. Pt improved this shift. Alert and oriented, off Bipap since this morning. Pt up to chair for meals, able to ambulate without difficulty using walker and standby assist. On 6L high flow via NC at this time. No acute events this shift, see chart for further details.
[2025-06-10] VITALS (18 sets, daily range): BP systolic 108–161; BP diastolic 53–81
[2025-06-10 03:17] LABS: BASOPHILS ABSOLUTE AUTO 0.04 K/mm3 (0.00-0.23); BASOPHILS PERCENT AUTO 0 % (0-2); EOSINOPHILS ABSOLUTE AUTO 0.00 K/mm3 (0.00-0.68); EOSINOPHILS PERCENT AUTO 0 % (0-6); Hematocrit 34.7 % (37.0-53.0); Hemoglobin 11.1 g/dL (13.5-17.5); IMMATURE GRAN ABSOLUTE AUTO 0.29 K/mm3 (0.00-0.10); IMMATURE GRAN PERCENT AUTO 2 % (0-1); LYMPHOCYTES ABSOLUTE AUTO 2.16 K/mm3 (0.84-5.20); LYMPHOCYTES PERCENT AUTO 12 % (21-46); MONOCYTES ABSOLUTE AUTO 0.86 K/mm3 (0.16-1.47); MONOCYTES PERCENT AUTO 5 % (4-13); Mean Corpuscular HGB Conc 32.0 g/dL (31.5-36.5); Mean Corpuscular Volume 92 fL (80-100); NEUTROPHILS ABSOLUTE AUTO 14.37 K/mm3 (1.96-9.15); NEUTROPHILS PERCENT AUTO 81 % (41-73); NRBC ABSOLUTE 0.00 K/mm3 (0.00-0.02); NRBC Auto 0.0 /100 WBC (0.0-0.2); Platelet Count 207 K/mm3 (150-400); RDW Coefficient Variation 14.3 % (11.7-14.2); RDW Standard Deviation 48.5 fL (35.1-46.3)
[2025-06-10 03:32] LABS: Anion Gap 5.0 mmol/L (3-11); Blood Urea Nitrogen 41.0 mg/dL (8-24); CO2, Blood 28.0 mmol/L (21-32); Calcium, Blood 8.4 mg/dL (8.5-10.1); Chloride, Blood 113.0 mmol/L (98-108); Creatinine, Blood 1.33 mg/dL (0.60-1.20); Glucose, Blood 130.0 mg/dL (70-99); Potassium, Blood 4.4 mmol/L (3.5-5.5); Sodium, Blood 142.0 mmol/L (136-145)
--- NOTE | 2025-06-10 06:28 | NUR ---
SHIFT SUMMERY PT HAS BEEN ALERT AND ORIENTED X 4 OVERNIGHT. HE HAS HAD PERIODS OF REST AND HAS WORN HIS BIPAP WHILE SLEEPING. HE HAS TOLERATED WELL. OXYGEN SAT HAVE BEEN >90%. HE HAS BEEN SB-SR ON THE CUSHION SPRING ASSEMBLER. HE HAS HAD NO COMPLAINTS OF PAIN OR DISTRESS OVERNIGHT. HE IS CONTINENT OF URINE AND VOIDS IN THE URINAL. HE HAS BEEN AFEBRILE. VERY PLEASANT AND COMPLIANT W/CARE.
[2025-06-10 15:07] LABS: Vancomycin, Trough 17.2 ug/mL (5.0-10.0)
--- NOTE | 2025-06-10 17:55 | NUR ---
Summary. Pt continued to improve this shift. Up to chair for meals, 02 down to 4 L NC. Pt ambulating well with walker, able to sustain sats better when exerting himself. No acute events this shift, see chart for further details.
[2025-06-11] VITALS (8 sets, daily range): BP systolic 128–165; BP diastolic 56–101
[2025-06-11 03:17] LABS: BASOPHILS ABSOLUTE AUTO 0.03 K/mm3 (0.00-0.23); BASOPHILS PERCENT AUTO 0 % (0-2); EOSINOPHILS ABSOLUTE AUTO 0.00 K/mm3 (0.00-0.68); EOSINOPHILS PERCENT AUTO 0 % (0-6); Hematocrit 35.0 % (37.0-53.0); Hemoglobin 10.8 g/dL (13.5-17.5); IMMATURE GRAN ABSOLUTE AUTO 0.24 K/mm3 (0.00-0.10); IMMATURE GRAN PERCENT AUTO 2 % (0-1); LYMPHOCYTES ABSOLUTE AUTO 2.39 K/mm3 (0.84-5.20); LYMPHOCYTES PERCENT AUTO 20 % (21-46); MONOCYTES ABSOLUTE AUTO 0.62 K/mm3 (0.16-1.47); MONOCYTES PERCENT AUTO 5 % (4-13); Mean Corpuscular HGB Conc 30.9 g/dL (31.5-36.5); Mean Corpuscular Volume 94 fL (80-100); NEUTROPHILS ABSOLUTE AUTO 8.94 K/mm3 (1.96-9.15); NEUTROPHILS PERCENT AUTO 73 % (41-73); NRBC ABSOLUTE 0.00 K/mm3 (0.00-0.02); NRBC Auto 0.0 /100 WBC (0.0-0.2); Platelet Count 202 K/mm3 (150-400); RDW Coefficient Variation 14.2 % (11.7-14.2); RDW Standard Deviation 48.6 fL (35.1-46.3)
[2025-06-11 03:35] LABS: Anion Gap 4.0 mmol/L (3-11); Blood Urea Nitrogen 45.0 mg/dL (8-24); CO2, Blood 30.0 mmol/L (21-32); Calcium, Blood 8.4 mg/dL (8.5-10.1); Chloride, Blood 112.0 mmol/L (98-108); Creatinine, Blood 1.26 mg/dL (0.60-1.20); Glucose, Blood 128.0 mg/dL (70-99); Potassium, Blood 4.9 mmol/L (3.5-5.5); Sodium, Blood 141.0 mmol/L (136-145)
--- NOTE | 2025-06-11 06:26 | NUR ---
SHIFT SUMMERY PT IS ALERT AND ORIENTED X 4. HE IS SB/SR ON THE BRANCH OPERATION EVALUATION MANAGER. BP WNL. AFEBRILE. PT WAS COMPLIANT W/BIPAP OVERNIGHT. PT HAS HAD NO RESP DISTRESS. HE IS PLEASANT AND COMPLIANT W/CARE. NO ACUTE CHANGES THIS SHIFT.
--- NOTE | 2025-06-11 18:10 | NUR ---
PT TRANSFERRED FROM ICU 12 TO PCU 19, REPORT RECEIVED FROM LEOBARDO ENGEL., PT SETTLED IN THE ROOM, ON 4L OF O2 VIA NASAL CANNULA BIPAP AT BEDSIDE. PT RESTING IN BED COMFORTABLY WILL REPORT TO ONCOMING SHIFT
[2025-06-12 03:18] VITALS: BP 150/70
[2025-06-12 04:36] LABS: BASOPHILS ABSOLUTE AUTO 0.02 K/mm3 (0.00-0.23); BASOPHILS PERCENT AUTO 0 % (0-2); EOSINOPHILS ABSOLUTE AUTO 0.00 K/mm3 (0.00-0.68); EOSINOPHILS PERCENT AUTO 0 % (0-6); Hematocrit 35.6 % (37.0-53.0); Hemoglobin 11.4 g/dL (13.5-17.5); IMMATURE GRAN ABSOLUTE AUTO 0.25 K/mm3 (0.00-0.10); IMMATURE GRAN PERCENT AUTO 2 % (0-1); LYMPHOCYTES ABSOLUTE AUTO 2.43 K/mm3 (0.84-5.20); LYMPHOCYTES PERCENT AUTO 24 % (21-46); MONOCYTES ABSOLUTE AUTO 0.62 K/mm3 (0.16-1.47); MONOCYTES PERCENT AUTO 6 % (4-13); Mean Corpuscular HGB Conc 32.0 g/dL (31.5-36.5); Mean Corpuscular Volume 92 fL (80-100); NEUTROPHILS ABSOLUTE AUTO 7.03 K/mm3 (1.96-9.15); NEUTROPHILS PERCENT AUTO 68 % (41-73); NRBC ABSOLUTE 0.00 K/mm3 (0.00-0.02); NRBC Auto 0.0 /100 WBC (0.0-0.2); Platelet Count 190 K/mm3 (150-400); RDW Coefficient Variation 14.0 % (11.7-14.2); RDW Standard Deviation 47.4 fL (35.1-46.3)
[2025-06-12 04:54] LABS: Anion Gap 6.0 mmol/L (3-11); Blood Urea Nitrogen 35.0 mg/dL (8-24); CO2, Blood 29.0 mmol/L (21-32); Calcium, Blood 8.3 mg/dL (8.5-10.1); Chloride, Blood 110.0 mmol/L (98-108); Creatinine, Blood 1.18 mg/dL (0.60-1.20); Glucose, Blood 116.0 mg/dL (70-99); Potassium, Blood 4.9 mmol/L (3.5-5.5); Sodium, Blood 140.0 mmol/L (136-145)
--- NOTE | 2025-06-12 05:04 | NUR ---
SHIFT SUMMARY NO ACUTE CHANGES OVERNIGHT. PT CONTINUES TO HAVE HIGHER END BPs WITH SBP 150s-160s EVEN WITH SCHED HYDRALAZINE PER EMAR. OTHERWISE VSS. PT TITRATED DOWN TO 2L VIA NC WHILE AWAKE >92%. ON BIPAP WHILE ASLEEP FOR THE MAJORITY OF NIGHT @ 40% FIO2. PT URINATING ADEQUATE AMOUNTS IN URINAL. NO C/O PAIN. PT VERY PLEASANT WITH NO FURTHER QUESTIONS OR CONCERNS AT THIS TIME. WILL CONTINUE WITH PLAN OF CARE.
[2025-06-12 07:59] VITALS: BP 155/66
[2025-06-12 13:31] VITALS: BP 169/74
--- NOTE | 2025-06-12 13:50 | NUR ---
SHIFT SUMMERY: PT A&OX4.FOLLOWS COMMANDS AND MAKES NEEDS KNOWN TO STAFF. PT WAS ABLE TO AMBULATE TO THE BATHROOM WITH FWW AND SBA FOR CORD MANAGEMENT. PT REMAINED FREE OF ANY CP, PRESSURE, TIGHTNESS OR SOB. PT DID HAVE A PRODUCTIVE COUGH BUT HAS ONLY BEEN ABLE TO COUGH UP A SMALL AMOUNT OF SPUTUM BUT UHAS BEEN TRYING TO COUGH UP MORE. PT DOES NOT HAVE A VERY STRONG COUGH. PT WAS ABLE TO TAKE PILLS WITHOUT ANY COMPLAINTS DIFFICULTIES. NO SIGNIFICANT EVENTS HAPPENED DURING THIS SHIFT. REPORT GIVEN TO SAMARIA Gomes RN. PTS BELONGINGS COLLECTED AND TAKEN WITH PT TO ROOM 351. PT STATED THAT HE DOES NOT HAVE ANY FAMILY FOR THIS RN TO NOTIFY ABOUT ROOM TRANSFER.
[2025-06-12 14:42] LABS: Vancomycin, Trough 20.1 ug/mL (5.0-10.0)
--- NOTE | 2025-06-12 16:36 | NUR ---
PT TRANSFER TO ROOM 351 FROM PCU 19 AT 1323 VIA WHEELCHAIR TO BED TX. PT AMBULATED 1 SBA WITH MODERATE SOB AFTER ACTIVITY AND RECOVERED AFTER A FEW MINUTES. OXYGEN AT 3L, SATTINS 94%.ORIENTED TO ROOM SET UP, CALL LIGHT AND SAFETY.
--- NOTE | 2025-06-12 16:39 | NUR ---
SUMMARY- PT A/O X4, COOPERATIVE, USES CALL LIGHT APPROPRIATELY. OXYGEN 3L/NC, SATS 92-94%. MOD DYSPNEA WITH ACTIVITY, RECOVERS WITHIN A FEW MINUTES. ROUTINE NEBULIZERS IN USE. USING PEP TX AND ENC COUGH AND DEEP BREATH, PT STATES SMALL AMOUNTS OF PHLEGM, STATES CREAM COLOR/WHITE, BUT THAT HE FEELS ALOT RATTELING AROUND THAT HE CANT CLEAR. ADMINISTERING ROBITUSSIN PRN TO HELP EXPECTORATION. PT TOLERATINTG FOOD AND FLUIDS. USING URINAL APPROP. VSS. WILL REPORT TO NEPTALI ENGEL.
[2025-06-12 19:14] VITALS: BP 165/62
[2025-06-13 01:50] VITALS: BP 155/75
[2025-06-13] MEDS ORDERED: Albuterol 2.5 MG/3 ML VIAL ONE (04:41)
[2025-06-13] MEDS ORDERED: Albuterol 2.5 MG/3 ML VIAL INH PRN (04:45)
--- NOTE | 2025-06-13 05:17 | NUR ---
SHIFT SUMMARY PATIENT A/O X4- PLEASANT AND COOPERATIVE WITH CARE. SBA W/ FWW TO BSC DUE TO SOB WITH EXERTION. REMAINED ON 3L NC TO KEEP 02 ABOVE 90%. BIPAP USED AT [facility]. PATIENT HAS WEAK BUT PRODUCTIVE COUGH, ENCOURAGING DEEP BREATHING EXERCISES. ROBATUSSIN GIVEN PRN. REQUESTING PRN BREATHING TREATMENTS. VITAL SIGNS REMAINED STABLE. NO ACUTE CHANGES THROUGHOUT SHIFT. WILL CONTINUE TO MONITOR AND REPORT TO ONCOMING RN.
[2025-06-13 06:29] LABS: BASOPHILS ABSOLUTE AUTO 0.05 K/mm3 (0.00-0.23); BASOPHILS PERCENT AUTO 0 % (0-2); EOSINOPHILS ABSOLUTE AUTO 0.02 K/mm3 (0.00-0.68); EOSINOPHILS PERCENT AUTO 0 % (0-6); Hematocrit 39.2 % (37.0-53.0); Hemoglobin 12.4 g/dL (13.5-17.5); IMMATURE GRAN ABSOLUTE AUTO 0.48 K/mm3 (0.00-0.10); IMMATURE GRAN PERCENT AUTO 4 % (0-1); LYMPHOCYTES ABSOLUTE AUTO 3.57 K/mm3 (0.84-5.20); LYMPHOCYTES PERCENT AUTO 29 % (21-46); MONOCYTES ABSOLUTE AUTO 0.61 K/mm3 (0.16-1.47); MONOCYTES PERCENT AUTO 5 % (4-13); Mean Corpuscular HGB Conc 31.6 g/dL (31.5-36.5); Mean Corpuscular Volume 92 fL (80-100); NEUTROPHILS ABSOLUTE AUTO 7.81 K/mm3 (1.96-9.15); NEUTROPHILS PERCENT AUTO 62 % (41-73); NRBC ABSOLUTE 0.00 K/mm3 (0.00-0.02); NRBC Auto 0.0 /100 WBC (0.0-0.2); Platelet Count 206 K/mm3 (150-400); RDW Coefficient Variation 13.8 % (11.7-14.2); RDW Standard Deviation 46.9 fL (35.1-46.3)
[2025-06-13 07:00] LABS: Anion Gap 6.0 mmol/L (3-11); Blood Urea Nitrogen 31.0 mg/dL (8-24); CO2, Blood 32.0 mmol/L (21-32); Calcium, Blood 8.7 mg/dL (8.5-10.1); Chloride, Blood 108.0 mmol/L (98-108); Creatinine, Blood 1.19 mg/dL (0.60-1.20); Glucose, Blood 100.0 mg/dL (70-99); Potassium, Blood 4.7 mmol/L (3.5-5.5); Sodium, Blood 141.0 mmol/L (136-145)
[2025-06-13 07:15] VITALS: BP 170/73
[2025-06-13 14:31] VITALS: BP 157/74
--- NOTE | 2025-06-13 18:21 | NUR ---
SUMMARY- PT A/O X4, AMBULATES TO CHAIR SBA, GOOD STRENGTH AND STEADY GAIT, NEEDS ASSIST FOR CONT PULSE OX LINE, IV LINE AND OXYGEN. AMBULATED WITH PHYSICAL THERAPY TODAY, ALL THE WAY DOWN THE RICHARD APPROX 80FT TOTAL, WITHOUT OXYGEN, SATS DOWN TO 84%, MIN DYSPNEA NOTED, PT FELT FINE. RECOVERED FROM ACTIVITY WITHIN A FEW MINUTES WITH REINTRODUCTION OF O2 3L BACK TO 92% SAT. PT LUNGS HAVE FINE CX BILAT BASES, SCATTERED COARSE RLL. OCC UPPER WHEEZE. ROUTINE NEBS HELPFUL. ADMINISTERING ROBOTUSSIN ROUTINELY, ENCOURAGING FLUTTER VALVE, COUGH AND DEEP BREATH. PT FINALLY ABLE TO PRODUCE PHLEGM TODAY, MOD AMOUNT OF CREAMY MALLORY. PT STATES HIS LUNGS FEELS MUCH BETTER NOW THAT HE IS WORKING THE PHLEGM OUT. PT TOLERATING FOOD AND FLUID. STARTED ON BOWEL CARE YESTERDAY AND TODAY, PASSING GAS WITH NORMOACTIVE BT, BUT STILL NO BM TODAY. WILL REPORT ALL TO NOC RN TO ASSUME CARE
[2025-06-13 20:43] VITALS: BP 168/77
[2025-06-14 02:26] VITALS: BP 152/77
--- NOTE | 2025-06-14 04:59 | NUR ---
SHIFT SUMMARY PATIENT A/O X4 THROUGHOUT SHIFT. RESTED WELL. REMAINED ON 3L VIA NC TO KEEP SATURATIONS ABOVE 90%. PATIENT CONTINUES TO COUGH UP MALLORY PHLEM, REPORTS THAT HE FEELS BETTER TODAY. PATIENT VOIDING WELL, USING URINAL. PT UP TO BATHROOM THIS MORNING, THINKING THAT HE WOULD HAVE A BOWEL MOVEMENT BUT HAD NO SUCCESS. PATIENT PASSING GAS. LUNG SOUNDS COARSE WITH CRACKLES, NO REPORT OF CHEST PAIN OR SOB AT REST. NO ACUTE CHANGES THROUGHOUT SHIFT. WILL CONTINUE TO MONITOR AND REPORT TO ONCOMING RN.
[2025-06-14 05:57] LABS: BASOPHILS ABSOLUTE AUTO 0.07 K/mm3 (0.00-0.23); BASOPHILS PERCENT AUTO 1 % (0-2); EOSINOPHILS ABSOLUTE AUTO 0.03 K/mm3 (0.00-0.68); EOSINOPHILS PERCENT AUTO 0 % (0-6); Hematocrit 38.3 % (37.0-53.0); Hemoglobin 12.0 g/dL (13.5-17.5); IMMATURE GRAN ABSOLUTE AUTO 0.44 K/mm3 (0.00-0.10); IMMATURE GRAN PERCENT AUTO 3 % (0-1); LYMPHOCYTES ABSOLUTE AUTO 3.40 K/mm3 (0.84-5.20); LYMPHOCYTES PERCENT AUTO 24 % (21-46); MONOCYTES ABSOLUTE AUTO 0.68 K/mm3 (0.16-1.47); MONOCYTES PERCENT AUTO 5 % (4-13); Mean Corpuscular HGB Conc 31.3 g/dL (31.5-36.5); Mean Corpuscular Volume 93 fL (80-100); NEUTROPHILS ABSOLUTE AUTO 9.50 K/mm3 (1.96-9.15); NEUTROPHILS PERCENT AUTO 67 % (41-73); NRBC ABSOLUTE 0.00 K/mm3 (0.00-0.02); NRBC Auto 0.0 /100 WBC (0.0-0.2); Platelet Count 185 K/mm3 (150-400); RDW Coefficient Variation 13.6 % (11.7-14.2); RDW Standard Deviation 46.5 fL (35.1-46.3)
[2025-06-14 06:14] LABS: Anion Gap 5.0 mmol/L (3-11); Blood Urea Nitrogen 35.0 mg/dL (8-24); CO2, Blood 32.0 mmol/L (21-32); Calcium, Blood 8.6 mg/dL (8.5-10.1); Chloride, Blood 108.0 mmol/L (98-108); Creatinine, Blood 1.15 mg/dL (0.60-1.20); Glucose, Blood 97.0 mg/dL (70-99); Potassium, Blood 4.5 mmol/L (3.5-5.5); Sodium, Blood 140.0 mmol/L (136-145)
[2025-06-14 07:23] VITALS: BP 175/82
[2025-06-14] MEDS ORDERED: Cefepime HCl 2,000 MG in NS 100 ML IV SCH (08:00)
[2025-06-14 14:41] VITALS: BP 156/66
[2025-06-14 16:09] LABS: Vancomycin, Trough 17.2 ug/mL (5.0-10.0)
--- NOTE | 2025-06-14 18:43 | NUR ---
PATIENT A/OX4, UP WITH SBA TO CHAIR. VSS, ON 2LO2 TO MAINTAIN SATS. CONTINUES TO COUGH UP MODERATE AB=MOUNT OF THICK MALLORY SPUTUM. ENCOURGED PATIENT TO USE FLUTTER VALVE. TOLERATING DIET, ACHS BLOOD SUGARS. DENIES ANY PAIN OR DISCOMFORT. USING URINAL INDEPENDENTLY TO VOID. CALLS APPROPRIATELY FOR ASSISTANCE. NO NEW CONCERNS THIS SHIFT.
[2025-06-14 19:29] VITALS: BP 144/71
--- NOTE | 2025-06-15 03:58 | NUR ---
SHIFT SUMMARY PT A&Ox4 AND PLEASANT. NO C/O PAIN. CONTINUING IV ABX. REMAINS ON 3L OF OXYGEN DURING THE NIGHT. BOWEL MEDS GIVEN PER EMAR FOR CONSTIPATION. RT AT BEDSIDE FOR BREATHING TX. VSS. BED IN LOWEST POSITION AND CALL LIGHT IN REACH.
[2025-06-15 04:21] VITALS: BP 184/64
[2025-06-15 05:08] VITALS: BP 160/64
[2025-06-15 05:48] VITALS: BP 170/69
[2025-06-15 06:12] LABS: BASOPHILS ABSOLUTE AUTO 0.07 K/mm3 (0.00-0.23); BASOPHILS PERCENT AUTO 1 % (0-2); EOSINOPHILS ABSOLUTE AUTO 0.07 K/mm3 (0.00-0.68); EOSINOPHILS PERCENT AUTO 1 % (0-6); Hematocrit 39.7 % (37.0-53.0); Hemoglobin 12.6 g/dL (13.5-17.5); IMMATURE GRAN ABSOLUTE AUTO 0.43 K/mm3 (0.00-0.10); IMMATURE GRAN PERCENT AUTO 3 % (0-1); LYMPHOCYTES ABSOLUTE AUTO 3.91 K/mm3 (0.84-5.20); LYMPHOCYTES PERCENT AUTO 25 % (21-46); MONOCYTES ABSOLUTE AUTO 0.70 K/mm3 (0.16-1.47); MONOCYTES PERCENT AUTO 5 % (4-13); Mean Corpuscular HGB Conc 31.7 g/dL (31.5-36.5); Mean Corpuscular Volume 92 fL (80-100); NEUTROPHILS ABSOLUTE AUTO 10.26 K/mm3 (1.96-9.15); NEUTROPHILS PERCENT AUTO 66 % (41-73); NRBC ABSOLUTE 0.00 K/mm3 (0.00-0.02); NRBC Auto 0.0 /100 WBC (0.0-0.2); Platelet Count 193 K/mm3 (150-400); RDW Coefficient Variation 13.4 % (11.7-14.2); RDW Standard Deviation 45.7 fL (35.1-46.3)
[2025-06-15 06:30] LABS: Anion Gap 7.0 mmol/L (3-11); Blood Urea Nitrogen 35.0 mg/dL (8-24); CO2, Blood 30.0 mmol/L (21-32); Calcium, Blood 8.8 mg/dL (8.5-10.1); Chloride, Blood 107.0 mmol/L (98-108); Creatinine, Blood 1.2 mg/dL (0.60-1.20); Glucose, Blood 89.0 mg/dL (70-99); Potassium, Blood 4.6 mmol/L (3.5-5.5); Sodium, Blood 139.0 mmol/L (136-145)
[2025-06-15 07:12] VITALS: BP 164/67
[2025-06-15 13:10] VITALS: BP 146/58
[2025-06-15] MEDS ORDERED: Q-Tussin100 MG/5 M PO (15:47)
[2025-06-15] MEDS ORDERED: HYDR10 PO (15:48)
[2025-06-15] MEDS ORDERED: Prednisone10 MG (15:51)
[2025-06-15] MEDS ORDERED: VISBIOME 112.51 EACH PO (15:52)
[2025-06-15] MEDS ORDERED: AMOCLA875 PO (15:53)
[2025-06-15] MEDS ORDERED: ALBU90OI INH (15:53)
--- NOTE | 2025-06-15 17:15 | NUR ---
PATIENT DC'D TO [facility] VIA TRANSPORT. DC PACKET SENT WITH LAST SORTER. REPORT CALLED TO HUY AT [facility]. PATIENT DENIES ANY FURTHER QUESTIONS OR CONCERNS.
== END 2025-06-15 17:15 | DRG 193 ==
LOC: ER 07:43 → PCU 13:46 → ER 13:46 → ERHOLD 13:46 → ICUE 13:46 → PCU 22:00 → ICUE 06-08 17:38 → PCU 06-11 17:20 → MEDS 06-12 13:23
PROVIDERS: Family Medicine; Internal Medicine Critical Care Medicine; Pharmacist; Physician Assistant; ADMIT Internal Medicine
PROC: 5A09457 Assistance with Respiratory Ventilation, 24-96 Consecutive Hours, Continuous Positive Airway Pressure (ICD-10-PCS; principal; 2025-06-09)
PROC: 3E03329 Introduction of Other Anti-infective into Peripheral Vein, Percutaneous Approach (ICD-10-PCS; 2025-06-09)
DX: J18.9 Pneumonia, unspecified organism (principal); J96.01 Acute respiratory failure with hypoxia; J96.02 Acute respiratory failure with hypercapnia; J44.1 Chronic obstructive pulmonary disease with (acute) exacerbation; N17.9 Acute kidney failure, unspecified; E87.29 Other acidosis; E78.5 Hyperlipidemia, unspecified; E03.9 Hypothyroidism, unspecified; E11.22 Type 2 diabetes mellitus with diabetic chronic kidney disease; I12.9 Hypertensive chronic kidney disease with stage 1 through stage 4 chronic kidney disease, or unspecified chronic kidney disease; N18.32 Chronic kidney disease, stage 3b; F32.A Depression, unspecified; R29.6 Repeated falls; I25.10 Atherosclerotic heart disease of native coronary artery without angina pectoris; E66.01 Morbid (severe) obesity due to excess calories; J98.01 Acute bronchospasm; N40.1 Benign prostatic hyperplasia with lower urinary tract symptoms; R31.9 Hematuria, unspecified; D64.9 Anemia, unspecified; D72.829 Elevated white blood cell count, unspecified; G47.00 Insomnia, unspecified; R41.0 Disorientation, unspecified; F29 Unspecified psychosis not due to a substance or known physiological condition; Z68.25 Body mass index [BMI] 25.0-25.9, adult; Z79.82 Long term (current) use of aspirin; Z79.84 Long term (current) use of oral hypoglycemic drugs; Z79.890 Hormone replacement therapy; Z79.899 Other long term (current) drug therapy; Z98.890 Other specified postprocedural states
CPT/HCPCS: 36415; 51702; 71045; 80048; 80053; 80202; 81001; 82570; 82803; 82947; 83605; 83880; 84145; 84300; 84484; 85025; 87040; 92526; 92610; 93005; 93010; 94640; 94644; 94660; 94664; 94760; 94762; 96374-59; 96375-59; 97110; 97116; 97162; 97530; 99285-25; A9270; C8929; J0360; J0456; J0692; J0696; J1171; J1644; J1650; J2543; J2919; J3373; J3475; J7030; J7040; J7050; J7512; Q9957

== ENCOUNTER 2025-07-06 18:17 | Emergency (ER) | payer OTHER ==
[~2025-07-06] VITALS: Ht 172.7 cm; Wt 108.9 kg
[~2025-07-06 18:17] MED LIST changes: +ALBU90OI INH; +DULO60 PO; +Prednisone10 MG; +Q-Tussin100 MG/5 M PO; +VISBIOME 112.51 EACH PO
[2025-07-06 19:29] LABS: BASOPHILS ABSOLUTE AUTO 0.04 K/mm3 (0.00-0.23); BASOPHILS PERCENT AUTO 1 % (0-2); EOSINOPHILS ABSOLUTE AUTO 0.23 K/mm3 (0.00-0.68); EOSINOPHILS PERCENT AUTO 3 % (0-6); Hematocrit 33.3 % (37.0-53.0); Hemoglobin 10.1 g/dL (13.5-17.5); IMMATURE GRAN ABSOLUTE AUTO 0.07 K/mm3 (0.00-0.10); IMMATURE GRAN PERCENT AUTO 1 % (0-1); LYMPHOCYTES ABSOLUTE AUTO 1.22 K/mm3 (0.84-5.20); LYMPHOCYTES PERCENT AUTO 16 % (21-46); MONOCYTES ABSOLUTE AUTO 0.38 K/mm3 (0.16-1.47); MONOCYTES PERCENT AUTO 5 % (4-13); Mean Corpuscular HGB Conc 30.3 g/dL (31.5-36.5); Mean Corpuscular Volume 97 fL (80-100); NEUTROPHILS ABSOLUTE AUTO 5.93 K/mm3 (1.96-9.15); NEUTROPHILS PERCENT AUTO 75 % (41-73); NRBC ABSOLUTE 0.00 K/mm3 (0.00-0.02); NRBC Auto 0.0 /100 WBC (0.0-0.2); Platelet Count 153 K/mm3 (150-400); RDW Coefficient Variation 15.0 % (11.7-14.2); RDW Standard Deviation 52.9 fL (35.1-46.3)
[2025-07-06 19:44] LABS: Alanine Aminotransfer (ALT/SGP 20.0 U/L (12-78); Albumin, Blood 2.6 g/dL (3.4-5.0); Albumin/Globulin Ratio 0.6 (0.8-1.8); Anion Gap 8.0 mmol/L (3-11); Aspartate Aminotrans (AST/SGOT 18.0 U/L (12-37); Bilirubin, Total 0.4 mg/dL (0.1-1.0); Blood Urea Nitrogen 25.0 mg/dL (8-24); CO2, Blood 33.0 mmol/L (21-32); Calcium, Blood 8.9 mg/dL (8.5-10.1); Chloride, Blood 105.0 mmol/L (98-108); Creatinine, Blood 1.45 mg/dL (0.60-1.20); Globulin, Blood 4.1 g/dL (2.2-4.0); Glucose, Blood 145.0 mg/dL (70-99); Magnesium, Blood 2.2 mg/dL (1.6-2.4); Phosphorus, Blood 3.8 mg/dL (2.5-4.9); Potassium, Blood 4.6 mmol/L (3.5-5.5); Sodium, Blood 141.0 mmol/L (136-145); Total Protein, Blood 6.7 g/dL (6.4-8.2)
[2025-07-06 21:02] LABS: Source, Urine Clean Catch
[2025-07-06 21:09] LABS: Bilirubin, Urine Neg (Neg); Color, Urine Yellow (P-Yellow); Glucose Qualitative, Urine Neg (Neg); Ketones, Urine Neg (Neg); Leukocyte Esterase, Urine Neg (Neg); Protein, Urine 1+ (Neg); Specific Gravity, Urine 1.015 (1.003-1.022); Urobilinogen, Urine NORM (Normal)
[2025-07-06 21:17] LABS: Red Blood Cells, Urine TNTC /hpf (0-2); White Blood Cells, Urine 0-2 /hpf (0-5)
[2025-07-06 22:15] VITALS: BP 129/111
== END 2025-07-06 23:15 | disposition home or self-care (01) ==
LOC: ER 18:17
PROVIDERS: Student in an Organized Health Care Education/Training Program
DX: R53.1 Weakness (principal); E11.9 Type 2 diabetes mellitus without complications; E78.5 Hyperlipidemia, unspecified; I10 Essential (primary) hypertension; Z79.4 Long term (current) use of insulin; Z79.899 Other long term (current) drug therapy; Z79.82 Long term (current) use of aspirin
CPT/HCPCS: 70450; 71046; 80053; 81001; 83735; 83880; 84100; 85025; 93005; 93010; 99285-25